=== PATIENT | female | born 1990 | race Caucasian/White ===

== ENCOUNTER 2020-11-06 17:13 | Outpatient (CLI) | payer OTHER, SELFPAY ==
[2020-11-06 18:09] LABS: Cholesterol 84 mg/dL (0-200); HDL Direct 28 mg/dL (40-60); LDL Cholesterol Calculated 20 mg/dL (<130); Triglycerides 179 mg/dL (0-150)
== END 2020-11-06 17:14 | disposition home or self-care (01) ==
LOC: CHSLAB 17:17
PROVIDERS: PCP Nurse Practitioner; Visit Provider Internal Medicine Cardiovascular Disease
DX: E78.5 Hyperlipidemia, unspecified (principal)
CPT/HCPCS: 36415; 80061

== ENCOUNTER 2021-01-18 20:49 | Emergency (ER) | payer OTHER, SELFPAY ==
[2021-01-18] VITALS (19 sets, daily range): BP systolic 108–152; BP diastolic 69–107; PULSE 59–106; RESP 12–20; TEMP 37; O2SAT 98–100
--- NOTE | ~2021-01-18 | XR_ITS ---
EXAMINATION: XR chest 2V DATE: 01/18/2021 21:54 INDICATION: Cough and chest pain TECHNIQUE: PA and lateral views of the chest are obtained. COMPARISON: None available FINDINGS: The lungs are free of acute opacities. There is no pleural effusion or pneumothorax. The ca rdiomediastinal silhouette is normal. The visualized bones and soft tissues are unremarkable. IMPRESSION: 1. No acute cardiopulmonary abnormality. Reviewed, dictated and finalized at location A.
--- NOTE | 2021-01-18 20:56 | ECG_ITS ---
Measurements Intervals [place] Rate: 88 P: 71 DE: 141 QRS: -9 QRSD: 95 T: 73 QT: 346 QTc: 420 Interpretive Statements SINUS RHYTHM NORMAL ECG Electronically Signed On 01-20-2021 12:04:00 CDT by Andrew Judge D.O.
--- NOTE | 2021-01-18 21:08 | ED.CHESTPAIN ---
HPI - Chest Pain General Chief Complaint: Chest Pain Stated Complaint: CP Time Seen by Provider: 01/18/21 20:55 Source: patient Mode of arrival: ambulatory Limitations: no limitations History of Present Illness HPI narrative: Patient is a 30-year-old female complaining of chest pain, sharp, midsternal, 6 out of 10, nonradiating that started approximately 4-5 days ago but states that has been going on since September. Patient denies any shortness of breath, abdominal pain, nausea, diaphoresis, fever or chills. Patient states that she had a similar episode in September had an echo, a cardiac cath done, was told no blockage and everything was normal. Related Data Home Medications Medication Instructions Recorded Confirmed lisinopril 10 mg PO DAILY 01/18/21 metoprolol tartrate 25 mg tablet 50 mg PO BID tablet 01/18/21 Allergies Allergy/AdvReac Type Severity Reaction Status Date / Time No Known Allergies Allergy Unverified 11/10/20 15:17 Review of Systems Review of Systems: All systems reviewed & are unremarkable except as noted in HPI and below Constitutional: Constitutional: Denies body ache(s), Denies chills, Denies excessive sweating, Denies fatigue, Denies fever(s), Denies headache(s), Denies lethargy, Denies malaise, Denies weakness and Denies weight loss Eyes: Eyes: Denies blurry vision, Denies change in vision and Denies loss of vision ENT: Denies dizziness, Denies ear discharge, Denies headache(s), Denies lip swelling, Denies epistaxis, Denies nasal congestion, Denies neck pain, Denies throat swelling and Denies tongue swelling Cardiovascular: Cardiovascular: Denies diaphoresis, Denies rapid heart rate, Denies edema, Denies irregular heart rhythm, Denies lightheadedness, Denies palpitations, Denies dyspnea and Denies dyspnea on exertion Respiratory: Respiratory: Denies chest congestion, Denies cough, Denies hemoptysis, Denies dyspnea and Denies dyspnea on exertion Gastrointestinal: Gastrointestinal: Denies abdominal pain, Denies melena, Denies hematochezia, Denies diarrhea, Denies nausea, Denies vomiting and Denies hematemesis Musculoskeletal: Musculoskeletal: Denies abnormal gait, Denies deformity, Denies joint swelling, Denies limited range of motion, Denies neck pain and Denies numbness Neurologic: Denies Abnormal speech present, Denies abnormal gait, Denies confusion, Denies dizziness, Denies headache(s), Denies focal weakness, Denies loss of vision, Denies numbness, Denies Other visual disturbances, Denies Sensory deficit (Neuro) and Denies weakness Psychiatric: Psychiatric: Denies confusion, Denies depression, Denies auditory hallucinations, Denies homicidal ideation and Denies suicidal ideation Endocrine: Endocrine: Denies cold intolerance, Denies excessive sweating, Denies fatigue, Denies heat intolerance and Denies palpitations Hematologic/Lymphatic: Hematologic/Lymphatic: Denies easy bleeding and Denies easy bruising Allergic/Immunologic: Allergic/Immunologic: Denies lip swelling, Denies throat swelling and Denies tongue swelling PMFSH Past Medical History Medical History Chest pain HTN (hypertension) Migraines NSTEMI (non-ST elevated myocardial infarction) Surgical History Surgical History History of appendectomy Family History Family History Mother Cerebrovascular accident Cancer Father Heart disease Social History Social History Smoking status: Current every day smoker Alcohol intake: never Exam Const: General: cooperative, healthy appearing, comfortable, no acute distress, well developed, alert and awake; No confusion Orientation/consciousness: oriented to person, oriented to place, oriented to time, patient oriented x3 and No confusion Henry
[2021-01-18 21:16] LABS: Basophils Absolute Auto 0.1 K/mm3 (0.0-0.1); Eosinophils Absolute Auto 0.4 K/mm3 (0-0.3); Eosinophils Percent Auto 4.5 % (0-4.4); Hematocrit 43.4 % (37.0-47.0); Hemoglobin 14.7 g/dL (12.0-15.0); Immature Granulocyte Absolute 0.02 K/mm3 (0.00-0.031); Immature Granulocyte Percent A 0.2 % (0-0.5); Lymphocytes Percent Auto 33.8 % (18.3-44.2); Mean Corpuscular HGB Conc 33.9 g/dl (32-36); Mean Corpuscular Hemoglobin 32.5 pg (26-34); Mean Platelet Volume 10.2 fl (7.4-10.4); Monocytes Absolute Auto 0.5 K/mm3 (0.1-0.6); Monocytes Percent Auto 5.7 % (2.6-8.5); Neutrophils Absolute Auto 5.2 K/mm3 (1.3-6.7); Neutrophils Percent Auto 54.8 % (45.5-73.1); Platelet Count Result 241 k/mm3 (150-375); Red Blood Count 4.52 M/mm3 (4.2-5.4); Red Cell Distribution Width 12.6 % (11.5-14.5); White Blood Count 9.5 K/mm3 (4.5-10.0)
[2021-01-18 21:28] LABS: Anion Gap 5 mmol/L (8-16); Blood Urea Nitrogen 13 mg/dL (7-17); Carbon Dioxide 28 mmol/L (22-30); Chloride 106 mmol/L (98-107); Estimated CRCL calculation 73 ml/min; Estimated Glomerular Filt Rate > 60; Glucose 96 mg/dL (65-105); Potassium 3.7 mmol/L (3.4-5.0); Sodium 139 mmol/L (137-145)
[2021-01-18 21:40] LABS: Troponin I < 0.012 ng/mL (0.000-0.034)
[2021-01-18 22:08] LABS: D Dimer 0.27 ug/mL (<0.48)
== END 2021-01-18 23:22 | disposition home or self-care (01) ==
PROVIDERS: Emergency Provider Emergency Medicine; PCP Nurse Practitioner
DX: R07.89 Other chest pain (principal); I10 Essential (primary) hypertension; I25.2 Old myocardial infarction; F17.200 Nicotine dependence, unspecified, uncomplicated
CPT/HCPCS: 36415; 71046; 80048; 81025; 84484; 85025; 85380; 93005; 99284

== ENCOUNTER 2021-05-03 16:26 | Outpatient (CLI) | payer OTHER, SELFPAY ==
--- NOTE | ~2021-05-03 | XR_ITS ---
XR chest 2V DATE: 05/03/2021 17:06 INDICATION: Anterior left-sided chest pain after cardiac catheterization on 10/04/2020 TECHNIQUE: PA and lateral views COMPARISON: PA and lateral chest FINDINGS: Normal heart size. No hilar or mediastinal enlargement. No pulmonary infiltrate or consolid ation, pleural effusion or pulmonary vascular congestion or pneumothorax. IMPRESSION: No active cardiopulmonary disease Reviewed, dictated and finalized at location A.
== END 2021-05-03 16:27 | disposition home or self-care (01) ==
LOC: CHSIMG 16:28
PROVIDERS: PCP Nurse Practitioner; Visit Provider Nurse Practitioner
DX: R07.89 Other chest pain (principal)
CPT/HCPCS: 71046

== ENCOUNTER 2021-09-08 11:49 | Outpatient (CLI) | payer OTHER, SELFPAY ==
--- NOTE | ~2021-09-08 | MMUS_ITS ---
EXAMINATION: MM diagnostic thais BI w girish, US breast LT limited HISTORY: Pain of the medial left breast radiating into the axilla and inframammary fold TECHNIQUE: Craniocaudal, mediolateral, and mediolateral oblique 3-D tomosynthesis images of the breas ts were performed and synthetic 2-D images were generated. CAD analysis was submitted and interpreted . High resolution limited left breast ultrasound was performed. COMPARISON: None, baseline BREAST PARENCHYMAL COMPOSITION: The breasts are heterogeneously dense, which may obscure small masses . FINDINGS: MAMMOGRAPHIC FINDINGS: There is no evidence of suspicious mass, calcification, or architectural distortion in either breast to suggest malignancy. No mammographic correlate is identified for the patient's reported left breast pain. ULTRASOUND: There is no evidence of focal abnormal solid or cystic mass in the vicinity of the patient's left sai ast pain. IMPRESSION: 1. No specific mammographic or sonographic correlate is identified for the patient's left breast pain . Further evaluation at this time should be based on clinical assessment. Continued follow-up physica l examination is recommended. 2. Recommend screening mammography beginning at age 40. BI-RADS Category 1: Negative Reviewed, dictated and finalized at location A. TOPPER IMPRESSION: 1. No specific mammographic or sonographic correlate is identified for the armond ent's left breast pain. Further evaluation at this time should be based on clin ical assessment. Continued follow-up physical examination is recommended. 2. Recommend screening mammography beginning at age 40. BI-RADS Category 1: Negative
== END 2021-09-08 11:50 | disposition home or self-care (01) ==
PROVIDERS: PCP Nurse Practitioner; Visit Provider Obstetrics & Gynecology
DX: R92.8 Other abnormal and inconclusive findings on diagnostic imaging of breast (principal)
CPT/HCPCS: 76642; 77062; 77066; G0279

== ENCOUNTER 2021-09-20 09:53 | Outpatient (RCR) | payer OTHER, SELFPAY ==
--- NOTE | 2021-09-23 15:36 | PTOPEVAL ---
Thank you for referring Fabi Álvarez to [facility].? The patient is scheduled to be seen for therapy? __2__x/week for 8 visits. Please review, sign, date and return this plan of care JAIRO. I agree with and certify that the following plan of care is medically necessary. Referring Physician Date Admitting Provider: Attending Provider: Lelia Pickett, CHRIS Referring Provider: *PT Outpatient Evaluation Start: 09/20/21 10:15 Freq: Status: Active Protocol: Document 09/20/21 10:15 [facility] (Rec: 09/20/21 11:07 [email or web address]) Therapy Assessment Status Assessment Status Assessment Status Evaluation Outpatient Past Medical History Cardiovascular History Hx Cardiac Catheterization Yes Hx Hypertension Yes Evaluation Information Problem Diagnosis costochondritis Onset 10/07/20 Subjective Information Pt. reports 2 days before Query Text:As Reported By Patient/ [place] she developed Family numbness going down her left arm. She reports she was put through testing which was inconclusive. She reports since that time she has had sharp pain located in the chest. She has been to the ER frequently due to the pain. She reports that pain is not triggered by anything particular. She describes pain as random and can radiate into the shoulder blades. Pt . reports that she has no disruption in sleep. She describes pin point pain on the sternum and states that the chest pain is worse than arm and back pain. She reports that her goal is to be able to decrease her pain. Diagnostic Tests X-Rays For This Problem Yes: chest Pain Assessment Pain Scale Pain Scale Used Numeric (1 - 10) Self Report Pain Assessment Chest Reported Pain Level 2 Pain Description Pinching,Sharp,Tender on Palpation Pain Frequency Intermittent Lowest Pain Intensity 0 Greatest Pain Intensity 9 Pain Aggravating Factors None Pain Score Pain Score 2: Self Report Interventions Used Interventions Used By Clinicians Exercise,Mobilization,Manual
--- NOTE | 2021-11-16 11:38 | PTOPEVAL ---
Thank you for referring Fabi Álvarez to [facility].? The patient is scheduled to be seen for therapy? ____x/week for ___ weeks. Please review, sign, date and return this plan of care JAIRO. I agree with and certify that the following plan of care is medically necessary. Referring Physician Date Admitting Provider: Attending Provider: Lelia Pickett, TECHNOLOGY SERVICES MANAGER-BC Referring Provider: *PT Outpatient Evaluation Start: 09/20/21 10:15 Freq: Status: Active Protocol: Document 11/16/21 10:58 [facility] (Rec: 11/16/21 11:35 [facility] [email or web address]) Therapy Assessment Status Assessment Status Assessment Status Discharge Outpatient Past Medical History Cardiovascular History Hx Cardiac Catheterization Yes Hx Hypertension Yes Evaluation Information Problem Diagnosis costochondritis Onset 10/07/20 Additional Evaluation Detail ndi = 6% functionally declined Subjective Information patient reports she feels Query Text:As Reported By Patient/ great this date. she reports Family she has had no symptoms in the past 3-4 weeks. she reports she feels therapy has helped a lot. Pain Assessment Timing of Pain Assessment Timing of Pain Assessment Assessment Self Report Self Report Pain Level 0 Pain Score Pain Score 0: Self Report Cervical and Lumbar ROM Cervical ROM Cervical Flexion (0-60) 65 Query Text:Active in Degrees Cervical Extension (0-70) 55 Query Text:Active in Degrees Cervical Lateral Flexion Right (0-50) 45 Query Text:Active in Degrees Cervical Lateral Flexion Left (0-50) 45 Query Text:Active in Degrees Cervical Rotation Right (0-90) 80 Query Text:Active in Degrees Cervical Rotation Left (0-90) 80 Query Text:Active in Degrees Upper Extremity Muscle Strength Testing General Upper Extremity Strength Gross Upper Extremity Strength Comments 5/5 bilateral shoulder and elbow strength 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 álvarez presents to skilled PT services for her 8th skilled PT visit. as of this date, she has me
== END 2021-11-16 13:46 | disposition home or self-care (01) ==
LOC: CHSPT 09:53
PROVIDERS: PCP Nurse Practitioner; Visit Provider Nurse Practitioner
DX: M94.0 Chondrocostal junction syndrome [Tietze] (principal)
CPT/HCPCS: 97110; 97140; 97161

== ENCOUNTER 2021-09-20 11:08 | Outpatient (CLI) | payer OTHER, SELFPAY ==
[2021-09-20 12:01] LABS: Rheumatoid Factor Screen Negative (Negative)
[2021-09-20 12:04] LABS: CRP < 0.2 mg/dL (0.0-0.9)
[2021-09-20 12:27] LABS: Erythrocyte Sedimentation Rate 2 mm/hr (0-15)
[2021-09-23 18:27] LABS: Anti Nuclear Antibody Titer 1:40 (Negative)
== END 2021-09-20 11:09 | disposition home or self-care (01) ==
LOC: CHSLAB 11:10
PROVIDERS: PCP Nurse Practitioner; Visit Provider Nurse Practitioner
DX: F11.11 Opioid abuse, in remission (principal); F41.1 Generalized anxiety disorder; R07.89 Other chest pain; Z13.31 Encounter for screening for depression
CPT/HCPCS: 36415; 85652; 86038; 86039; 86140; 86430

== ENCOUNTER 2022-04-02 13:15 | Emergency (ER) | payer OTHER, SELFPAY ==
[2022-04-02 13:17] VITALS: BP 140/81; PULSE 97; RESP 20; TEMP 37.1; O2SAT 99
--- NOTE | 2022-04-02 13:28 | ECG_ITS ---
Measurements Intervals [place] Rate: 77 P: 56 [place]: 142 QRS: -7 QRSD: 90 T: 58 QT: 361 QTc: 411 Interpretive Statements SINUS RHYTHM WITH SINUS ARRHYTHMIA NORMAL ECG COMPARED TO ECG 01/18/2021 20:56:38 SINUS ARRHYTHMIA NOW PRESENT Electronically Signed On 04-03-2022 9:09:35 CDT by Gumaro Bell M.D.
--- NOTE | 2022-04-02 13:46 | ED.ARRPALP ---
HPI - Arrhythmia/Palpitations General Chief Complaint: Arrhythmia/Palpitations Stated Complaint: dizzy, chest pain, low HR, nausea Source: patient Mode of arrival: ambulatory Limitations: no limitations History of Present Illness HPI narrative: this is a 31-year-old female that sees Cardiology for palpitations currently on metoprolol, the patient felt woozy, with some twinges in her chest patient otherwise no shortness of breath does appear anxious with no fever chills no abdominal pain does have some nausea with no vomiting. Apparently has been on metoprolol and heart rate according patient fluctuates and has gotten down into the upper 50s and has felt concerned. complaint: palpitations Onset (ago): day(s) Duration: intermittent Severity: mild Context: occurred during rest Associated symptoms: denies other symptoms Related Data Allergies Allergy/AdvReac Type Severity Reaction Status Date / Time No Known Allergies Allergy Verified 02/22/22 14:01 Review of Systems Review of Systems: All systems reviewed & are unremarkable except as noted in HPI and below PMFSH Past Medical History Medical History Chest pain HTN (hypertension) Migraines NSTEMI (non-ST elevated myocardial infarction) Surgical History Surgical History History of appendectomy Family History Family History Mother Cerebrovascular accident Cancer Father Heart disease Social History Social History Smoking packs per day: 0.5 Smoking cigarettes per day: 10.0 Years smoked: 10 Smoking pack-years: 5.00 Smoking status: Current every day smoker Alcohol intake: never Exam Const: General: healthy appearing Limitations: no limitations HENMT: Head: normal to inspection Eyes: Conjunctivae: conjunctivae normal Neck: Neck: normal visual inspection, no lymphadenopathy and no meningeal signs Chest: Chest palpation & inspection: normal inspection of the chest Resp: Effort & Inspection: normal respiratory effort Cardio: Rate: regular rate Rhythm: regular rhythm GI: Auscultation: normal bowel sounds Back/Spine/Pelvis: Back: no CVA tenderness Skin: General skin exam: normal color Rashes: no rashes Wounds: no wounds Neuro: General: patient oriented x3 and moves all extremities Extrem: General: normal to inspection Psych: Mental Status: mental status grossly normal Affect: Anxious affect present Course Course Emergency Course: Patient appears anxious and give a dose of Xanax, patient had EKG which shows normal sinus rhythm with a rate of 77. Critical Care Time Critical Care Time Critical Care Time: No Discharge Plan Discharge Clinical Impression: Palpitations, Anxiety Patient Disposition: Home, Self-Care Condition: Stable Instructions: Antibiotic Form, Heart Palpitations (ED), Anxiety (ED) Additional Instructions: advised to take medicine as prescribed, and follow up with primary care/ frame builder for further evaluation treatment. Prescriptions: New alprazolam [Xanax] 0.5 mg tablet 0.5 mg PO BID PRN (Reason: anxiety) Qty: 20 0RF No Action metoprolol tartrate 25 mg tablet 25 mg PO BID Qty: 60 2RF amlodipine 2.5 mg tablet See Rx Instructions .ROUTE .COMPLEX Qty: 30 5RF Dose Instruction: TAKE 1 TABLET BY MOUTH DAILY Rx Instructions: TAKE 1 TABLET BY MOUTH DAILY Follow-up/Referrals: Piyush,CHRIS Rowell [Primary Care Provider] - Time of Disposition: 13:58
[2022-04-02] MEDS: ALPRAZolam (*CRX) 0.5 MG TABLET PO (13:54)
[2022-04-02 14:01] VITALS: BP 140/81; PULSE 97; RESP 20; TEMP 37.2; O2SAT 99
--- NOTE | 2022-04-02 14:21 | PC.NURSE ---
discharge instructions to pt. voiced understanding. awaiting family members to pick her up from a ride home.
--- NOTE | 2022-04-02 14:44 | PC.NURSE ---
friend felicity london here to [place] picker pt.
== END 2022-04-02 14:44 | disposition home or self-care (01) ==
PROVIDERS: Emergency Provider Emergency Medicine; PCP Nurse Practitioner
DX: R00.2 Palpitations (principal); F41.9 Anxiety disorder, unspecified
CPT/HCPCS: 93005; 99283; A9270

== ENCOUNTER 2022-06-11 16:14 | Emergency (ER) | payer OTHER, SELFPAY ==
[2022-06-11] VITALS (15 sets, daily range): BP systolic 118–150; BP diastolic 75–96; PULSE 62–91; RESP 12–20; TEMP 36.8–37; O2SAT 95–100
--- NOTE | ~2022-06-11 | XR_ITS ---
EXAMINATION: XR chest 2V Exam Date/Time: 06/11/2022 19:42 CDT HISTORY: cough Comparison: 05/03/2021. RESULT: Lines, tubes, and devices: None. Lungs and pleura: Clear. Cardiomediastinal silhouette: Stable. Other: No acute osseous or upper abdominal finding. IMPRESSION: No acute cardiopulmonary process. Reviewed, dictated and finalized at location K.
--- NOTE | 2022-06-11 16:25 | ECG_ITS ---
Measurements Intervals [place] Rate: 79 P: 56 [place]: 146 QRS: -2 QRSD: 87 T: 34 QT: 347 QTc: 399 Interpretive Statements SINUS RHYTHM NORMAL ECG COMPARED TO ECG 04/02/2022 13:39:08 NO SIGNIFICANT CHANGES Electronically Signed On 06-12-2022 12:20:07 CDT by Jimi Flanagan M.D.
[2022-06-11 17:08] LABS: Basophils Absolute Auto 0.1 K/mm3 (0.0-0.1); Basophils Percent Auto 0.6 % (0.2-1.2); Eosinophils Absolute Auto 0.1 K/mm3 (0-0.3); Eosinophils Percent Auto 0.6 % (0-4.4); Hematocrit 44.3 % (37.0-47.0); Immature Granulocyte Absolute 0.03 K/mm3 (0.00-0.031); Immature Granulocyte Percent A 0.3 % (0-0.5); Lymphocytes Absolute Auto 1.06 K/mm3 (0.9-3.2); Lymphocytes Percent Auto 10.2 % (18.3-44.2); Mean Corpuscular HGB Conc 33.9 g/dl (32-36); Mean Corpuscular Hemoglobin 32.1 pg (26-34); Mean Corpuscular Volume 94.7 fl (80-100); Mean Platelet Volume 9.8 fl (7.4-10.4); Monocytes Absolute Auto 0.5 K/mm3 (0.1-0.6); Monocytes Percent Auto 4.6 % (2.6-8.5); Neutrophils Absolute Auto 8.7 K/mm3 (1.3-6.7); Neutrophils Percent Auto 83.7 % (45.5-73.1); Platelet Count Result 215 k/mm3 (150-375); Red Blood Count 4.68 M/mm3 (4.2-5.4); White Blood Count 10.4 K/mm3 (4.5-10.0)
[2022-06-11 17:10] LABS: Appearance Urine Slightly Cloudy (Clear); Bilirubin Urine Negative (Negative); Glucose Urine UA Negative (Negative); Ketones Urine Negative (Negative); Leukocyte Esterase Ur Negative LEU/UL (Negative); Nitrate Urine Negative (Negative); Protein Urine Negative (Negative); Urobilinogen Urine 0.2 mg/dL (<2.0); pH Urine 6.5 (5.0-9.0)
[2022-06-11 17:11] LABS: Add Urine Microscopic? YES; Blood Urine Trace-Intact (Negative); Color Urine Light Yellow (Yellow)
[2022-06-11 17:12] LABS: Bacteria Urine Trace /hpf; Mucus Urine Rare /lpf; RBC Urine 0-2 /hpf (0-2); Squamous Epithelial Cell Urine Occasional /hpf (Few); WBC Urine 0-3 /hpf
[2022-06-11 17:21] LABS: Alanine Aminotransferase 25 U/L (6-35); Albumin Level 4.3 g/dL (3.5-5.1); Alkaline Phosphatase 40 U/L (38-126); Anion Gap 9 mmol/L (8-16); Aspartate Amino Transferase 29 U/L (14-36); Bilirubin,Total 0.3 mg/dL (0.2-1.3); Blood Urea Nitrogen 9 mg/dL (7-17); Calcium 9.1 mg/dL (8.4-10.2); Carbon Dioxide 25 mmol/L (22-30); Chloride 102 mmol/L (98-107); Estimated CRCL calculation 109 ml/min; Estimated Glomerular Filt Rate > 60; Glucose 96 mg/dL (65-110); Potassium 3.9 mmol/L (3.4-5.0); Sodium 136 mmol/L (137-145)
--- NOTE | 2022-06-11 18:26 | ED.WEAKNESS ---
HPI - Weakness General Chief complaint: Weakness Stated complaint: left rib pain, weak Time Seen by Provider: 06/11/22 17:42 History of Present Illness HPI Narrative: Patient is a 31-year-old female who presents ER with generalized fatigue over the last week. Associate with left-sided rib pain that is worse with movements. Symptoms worsen while doing her laundry so she came to the ER. No fevers or chills or sweats. Reports mild cough. No exertional chest discomfort. Has tried Tylenol for discomfort with minimal improvement. Related Data Allergies Allergy/AdvReac Type Severity Reaction Status Date / Time No Known Allergies Allergy Verified 06/11/22 17:45 Review of Systems Review of Systems: All systems reviewed & are unremarkable except as noted in HPI and below Constitutional: Constitutional: Denies chills, Reports fatigue, Denies fever(s) and Reports weakness ENT: Denies nasal congestion and Denies sore throat Cardiovascular: Cardiovascular: Reports chest pain, Denies rapid heart rate and Denies radiating jaw, neck or arm pain Respiratory: Respiratory: Reports cough, Denies dyspnea and Denies wheezing Gastrointestinal: Gastrointestinal: Denies abdominal pain, Denies nausea and Denies vomiting PMFSH Past Medical History Medical History Chest pain HTN (hypertension) Migraines NSTEMI (non-ST elevated myocardial infarction) Surgical History Surgical History History of appendectomy Family History Family History Mother Cerebrovascular accident Cancer Father Heart disease Social History Social History Smoking packs per day: 0.5 Smoking cigarettes per day: 10.0 Years smoked: 10 Smoking pack-years: 5.00 Smoking status: Current every day smoker Alcohol intake: never Exam Narrative: GENERAL: Well-appearing, well-nourished, and in no acute distress. HEAD: Normocephalic, atraumatic. ENT: Mucous membranes moist. NECK: Supple. CHEST: Clear to auscultation. No respiratory distress. Mild tenderness left lateral chest wall. Inferior aspect. HEART: Regular rate and rhythm. Normal peripheral pulses. ABDOMEN: Soft, nontender, nondistended. EXTREMITIES: Normal range of motion. No edema. SKIN: Warm, dry, no rash. NEURO: Alert and oriented x3. PSYCH: Normal mood and affect. Course Course Emergency Course: Patient resting comfortably. Pain improved with Toradol. D-dimer negative. Vital Signs Vital signs: Vital Signs Temperature 98.6 F 06/11/22 16:21 Pulse Rate 90 06/11/22 16:21 Respiratory Rate 16 06/11/22 16:21 Blood Pressure 138/83 06/11/22 16:21 Pulse Oximetry 99 06/11/22 16:21 Oxygen Delivery Room Air 06/11/22 16:21 Temperature 98.3 F 06/11/22 17:40 Pulse Rate 62 06/11/22 20:12 Respiratory Rate 20 06/11/22 20:12 Blood Pressure 137/75 06/11/22 20:12 Pulse Oximetry 95 06/11/22 20:12 Oxygen Delivery Room Air 06/11/22 17:40 MDM - Weakness Lab Data Result diagrams: 06/11/22 17:01 06/11/22 17:01 Labs: Lab Results 06/11/22 06/11/22 06/11/22 Range/Units 17:01 17:01 17:01 WBC 10.4 H (4.5-10.0) K/mm3 RBC 4.68 (4.2-5.4) M/mm3 Hgb 15.0 (12.0-15.0) g/dL Hct 44.3 (37.0-47.0) % MCV 94.7 (80-100) fl MCH 32.1 (26-34) pg MCHC 33.9 (32-36) g/dl RDW 12.0 (11.5-14.5) % Plt Count 215 (150-375) k/mm3 MPV 9.8 (7.4-10.4) fl Immature Gran % (Auto) 0.3 (0-0.5) % Neut % (Auto) 83.7 H (45.5-73.1) % Lymph % (Auto) 10.2 L (18.3-44.2) % [place] % (Auto) 4.6 (2.6-8.5) % Eos % (Auto) 0.6 (0-4.4) % Baso % (Auto) 0.6 (0.2-1.2) % Lymph # (Auto) 1.06 (0.9-3.2) K/mm3 [place] # (Auto) 0.5 (0.1-0.6) K/mm3 Eos # (Auto) 0
[2022-06-11] MEDS: KETOROLAC 30 MG/ML VIAL (*BKC) IV PUSH (18:48)
[2022-06-11 19:17] LABS: D Dimer < 0.27 ug/mL (<0.48)
== END 2022-06-11 20:14 | disposition home or self-care (01) ==
PROVIDERS: Emergency Medicine; Emergency Provider Emergency Medicine; PCP Nurse Practitioner
DX: R07.89 Other chest pain (principal); I10 Essential (primary) hypertension; I25.2 Old myocardial infarction; F17.210 Nicotine dependence, cigarettes, uncomplicated
CPT/HCPCS: 36415; 71046; 80053; 81001; 81025; 85025; 85380; 93005; 96374; 99284; J1885

== ENCOUNTER 2022-07-08 17:12 | Outpatient (CLI) | payer OTHER, SELFPAY ==
--- NOTE | ~2022-07-08 | CT_ITS ---
EXAMINATION: CT sinus wo con DATE: 07/08/2022 17:29 INDICATION: Frontal sinus mucocele. TECHNIQUE: Computed tomography (CT) of the paranasal sinuses was performed without intravenous contra st. The dose-length product was 310.25 mGy-cm. Automated exposure control and iterative reconstructio n technique were employed. COMPARISON: CT dated 02/13/2019 FINDINGS: There is mucosal thickening of the right maxillary sinus with air-fluid level. No significa nt mucoperiosteal reaction. There are surgical changes consistent with resection of the right ostiome atal unit. Left ostiomeatal unit is patent. Mild rightward nasal septal deviation. Remainder of the p aranasal sinuses are unremarkable. Mastoids are pneumatized. IMPRESSION: 1. Moderate right maxillary sinus disease. Reviewed, dictated and finalized at location A.
== END 2022-07-08 17:13 | disposition home or self-care (01) ==
LOC: ANHIMG 17:14
PROVIDERS: PCP Nurse Practitioner; Visit Provider Otolaryngology
DX: J32.1 Chronic frontal sinusitis (principal); J34.1 Cyst and mucocele of nose and nasal sinus; J32.0 Chronic maxillary sinusitis
CPT/HCPCS: 70486

== ENCOUNTER 2022-07-13 14:06 | Outpatient (CLI) | payer OTHER, SELFPAY ==
--- NOTE | ~2022-07-13 | XR_ITS ---
XR abdomen/kub 1V 07/13/2022 14:27 INDICATION: Left flank pain TECHNIQUE: KUB COMPARISON: 07/10/2017 FINDINGS: Bowel gas pattern is normal. There is no evidence of free air, mass, organomegaly, ascites or obstruction. No abnormal calculi are seen. The bones appear intact. There are calcified granulo mas in the spleen. IMPRESSION: 1: No acute abdominal abnormality identified. Reviewed, dictated and finalized at location B.
== END 2022-07-13 14:07 | disposition home or self-care (01) ==
LOC: CHSLAB 14:08 → CHSIMG 14:10
PROVIDERS: PCP Nurse Practitioner; Visit Provider Nurse Practitioner
DX: R10.9 Unspecified abdominal pain (principal)
CPT/HCPCS: 74018

== ENCOUNTER 2022-10-18 13:05 | Outpatient (CLI) | payer OTHER, SELFPAY ==
[2022-10-18 13:25] LABS: Basophils Absolute Auto 0.07 K/mm3 (0.00-0.10); Basophils Percent Auto 0.9 % (0.0-1.0); Eosinophils Absolute Auto 0.17 K/mm3 (0.02-0.50); Eosinophils Percent Auto 2.2 % (1.0-6.0); Hematocrit 42.8 % (35.0-49.0); Immature Granulocyte Absolute 0.02 K/mm3 (0.00-0.00); Immature Granulocyte Percent A 0.3 % (0.0-0.0); Lymphocytes Absolute Auto 1.96 K/mm3 (1.10-4.50); Lymphocytes Percent Auto 25.3 % (18.0-42.0); Mean Corpuscular HGB Conc 32.7 g/dL (32.0-36.0); Mean Corpuscular Hemoglobin 29.9 pg (27.0-31.0); Mean Corpuscular Volume 91.3 fL (78.0-102.0); Mean Platelet Volume 9.7 fl (9.2-11.8); Monocytes Absolute Auto 0.41 K/mm3 (0.10-0.90); Monocytes Percent Auto 5.3 % (2.0-11.0); Neutrophils Absolute Auto 5.1 K/mm3 (1.7-7.2); Platelet Count Result 255 K/mm3 (150-420); Red Blood Count 4.69 M/mm3 (4.20-5.40); Red Cell Distribution Width 12.1 % (11.6-14.4); White Blood Count 7.8 K/mm3 (4.8-10.8)
[2022-10-18 13:57] LABS: Free T4 Free Thyroxine 1.34 ng/dL (0.76-1.46)
[2022-10-18 14:30] LABS: Thyroid Stimulating Hormone < 0.01 uIU/mL (0.36-3.74)
[2022-10-20 04:34] LABS: Total Triiodothyronine (T3) 169.6 ng/dL (76-181)
== END 2022-10-18 13:06 | disposition home or self-care (01) ==
LOC: CHSLAB 13:07
PROVIDERS: PCP Nurse Practitioner; Visit Provider Nurse Practitioner
DX: E05.90 Thyrotoxicosis, unspecified without thyrotoxic crisis or storm (principal); F11.11 Opioid abuse, in remission; F41.1 Generalized anxiety disorder; Z13.31 Encounter for screening for depression
CPT/HCPCS: 36415; 84439; 84443; 84480; 85025

== ENCOUNTER 2022-11-16 00:24 | Day surgery (SDC) | payer OTHER, SELFPAY ==
[2022-10-07 14:05] VITALS: BMI 28.9
--- NOTE | 2022-10-31 14:28 | PC.NURSE ---
Spoke with patient regarding new procedure dates and times. No new changes to medical history or medications. Patient verbalizes understanding of prep instructions.
[2022-11-16] MEDS: LACTATED RINGERS 1,000 ML 150 ML IV CONT (09:45)
[2022-11-16 09:47] VITALS: BP 136/84; PULSE 98; RESP 20; TEMP 37.1; O2SAT 98; BMI 28.7
--- NOTE | 2022-11-16 10:00 | PM.HPGS ---
History of Present Illness History of Present Illness Consent: Risks, benefits, and alternatives have been discussed and questions answered. Patient agrees to proceed with procedure. Chief complaint: diarrhea/constipation Narrative: Fabi Álvarez is a 32 year old female with intermittent pain in left abdomen and sometimes with constipation, not using anything. Never had colonoscopy Review of Systems Constitutional: Constitutional: Denies headache(s) and Denies weakness Eyes: Eyes: Denies blurry vision ENT: Reports Normal hearing present, Denies headache(s) and Denies neck pain Cardiovascular: Cardiovascular: Denies chest pain and Denies dyspnea Respiratory: Respiratory: Denies dyspnea Gastrointestinal: Gastrointestinal: Reports no additional gastrointestinal complaints Genitourinary: Genitourinary: Denies dysuria Musculoskeletal: Musculoskeletal: Denies neck pain Integumentary/Breasts: Skin/Breast: Denies dry skin Neurologic: Reports Normal hearing present, Denies headache(s) and Denies weakness Psychiatric: Psychiatric: Denies anxiety Endocrine: Endocrine: Denies change in body appearance Hematologic/Lymphatic: Hematologic/Lymphatic: Denies easy bleeding Allergic/Immunologic: Allergic/Immunologic: Denies urticaria PMF Past Medical History Medical History (Updated 11/16/22 @ 10:01 by Neo Gonzalez MD) Chest pain HTN (hypertension) Left sided abdominal pain Migraines NSTEMI (non-ST elevated myocardial infarction) Surgical History Surgical History History of appendectomy Family History Family History Mother Cerebrovascular accident Cancer Father Heart disease Social History Social History (Updated 09/29/22 @ 09:48 by Malcolm Bird MA) Smoking packs per day: 0.5 Smoking cigarettes per day: 10.0 Years smoked: 10 Smoking pack-years: 5.00 Smoking status: Current every day smoker Tobacco type: e-cigarettes/vaping Alcohol intake: never Substance use: former Substance use type: opiates Living arrangements: with friend(s) Spiritual care concerns: No Meds Home Medications and Allergies Home Medications Medication Instructions Recorded Confirmed Type metoprolol tartrate 25 mg tablet See Rx Instructions .Route 08/16/22 10/07/22 Rx .COMPLEX #60 tabs amlodipine 5 mg tablet 5 mg PO DAILY #90 tabs 09/23/22 10/07/22 Rx lorazepam 0.5 mg tablet (Ativan) 0.5 mg PO BID PRN Anxiety 09/29/22 10/07/22 History buprenorphine 8 mg-naloxone 2 mg 1 tablet sublingual DAILY 10/07/22 10/07/22 History sublingual tablet Allergies Allergy/AdvReac Type Severity Reaction Status Date / Time No Known Allergies Allergy Verified 11/16/22 09:41 Vital Signs Vital Signs - 24 hr 11/16/22 09:47 Temperature 98.7 F Pulse Rate 98 Respiratory Rate 20 Blood Pressure 136/84 Pulse Oximetry 98 Oxygen Delivery Room Air Exam Const: General: comfortable and no acute distress HENMT: Face/Nose/Sinus: Normal nares present Eyes: General: appearance normal, both eyes and all related structures Neck: Neck: no JVD Resp: Auscultation: clear to auscultation bilaterally Cardio: Rate: regular rate Rhythm: regular rhythm GI: Inspection: non-distended GI Palp: Yes Soft to palpation Skin: General skin exam: normal color Neuro: General: gait normal Speech: normal speech Extrem: General: normal to inspection Psych: Mental Status: mental status grossly normal Assessment and Plan Assessment and plan (1) Left sided abdominal pain: Code(s): R10.9 - Unspecified abdominal pain Status: Acute Assessment and Plan: colonoscopy
--- NOTE | 2022-11-16 10:10 | P.PNAN_ITS ---
Anes - Initial Pre Proc Eval Procedure: Operation Date: 11/16/22 11:00 Proposed Procedures p Colonoscopy - Neo Gonzalez MD Date/Time: 11/16/22 10:10 Surgeon: Neo Gonzalez MD Pre Op Diagnosis: diarrhea/constipation Patient Data Age: 32 Gender: F Height: 1.6 m Weight: 73.5 kg Last Vital Signs Temp 98.7 F 11/16/22 09:47 Pulse 98 11/16/22 09:47 Resp 20 11/16/22 09:47 BP 136/84 11/16/22 09:47 Pulse Ox 98 11/16/22 09:47 O2 Del Method Room Air 11/16/22 09:47 Allergies Allergy/AdvReac Type Severity Reaction Status Date / Time No Known Allergies Allergy Verified 11/16/22 09:41 Home Medications Medication Instructions Recorded Confirmed Type metoprolol tartrate 25 mg tablet See Rx Instructions .Route 08/16/22 10/07/22 Rx .COMPLEX #60 tabs amlodipine 5 mg tablet 5 mg PO DAILY #90 tabs 09/23/22 10/07/22 Rx lorazepam 0.5 mg tablet (Ativan) 0.5 mg PO BID PRN Anxiety 09/29/22 10/07/22 History buprenorphine 8 mg-naloxone 2 mg 1 tablet sublingual DAILY 10/07/22 10/07/22 History sublingual tablet Patient hx anesthesia problems: none Family hx anesthesia problems: none Results Review: All pre-operative results and documents have been reviewed as part of the pre- operative evaluation. [facility] Past Medical History Medical History (Updated 11/16/22 @ 10:01 by Neo Gonzalez MD) Chest pain HTN (hypertension) Left sided abdominal pain Migraines NSTEMI (non-ST elevated myocardial infarction) Surgical History Surgical History History of appendectomy Family History Family History Mother Cerebrovascular accident Cancer Father Heart disease Social History Social History (Updated 09/29/22 @ 09:48 by Malcolm Bird MA) Smoking packs per day: 0.5 Smoking cigarettes per day: 10.0 Years smoked: 10 Smoking pack-years: 5.00 Smoking status: Current every day smoker Tobacco type: e-cigarettes/vaping Alcohol intake: never Substance use: former Substance use type: opiates Living arrangements: with friend(s) Spiritual care concerns: No Anes - Eval Final PreProcedure Day of Procedure 11/16/22 10:10 Patient weight: normal Heart: regular rate and rhythm Lungs: clear to auscultation Airway: Mallampati scale class II Neurological: alert and oriented Last oral intake: >/= 8 hours ASA classification: II Emergent: no Anesthetic plan: proceed Anesthesia type and monitoring: general GIVS and standard monitoring Results Review: All pre-operative results and documents have been reviewed as part of the pre- operative evaluation. Informed Consent: The patient's anesthetic plan and its attendant risks and benefits were discussed with the patient/family/POA. Questions were solicited and answers provided to the satisfaction of the patient/family/POA.
[2022-11-16 10:50] VITALS: BP 108/66; PULSE 96; RESP 19; O2SAT 99
[2022-11-16 11:00] VITALS: BP 110/67; PULSE 96; RESP 17; O2SAT 97
[2022-11-16 11:10] VITALS: BP 117/77; PULSE 97; RESP 21; O2SAT 99
== END 2022-11-16 11:16 | disposition home or self-care (01) ==
PROVIDERS: PCP Nurse Practitioner; Visit Provider Internal Medicine Gastroenterology
PROC: 0DJD8ZZ Inspection of Lower Intestinal Tract, Via Natural or Artificial Opening Endoscopic (ICD-10-PCS; CPT 45378; principal; 2022-11-16 11:00)
DX: R10.32 Left lower quadrant pain (principal); K59.00 Constipation, unspecified; I10 Essential (primary) hypertension; I25.2 Old myocardial infarction; F17.290 Nicotine dependence, other tobacco product, uncomplicated; F11.20 Opioid dependence, uncomplicated
CPT/HCPCS: 45378; 36415; 71045; 80053; 81001; 81025; 83605; 83690; 85025; 87637; 96361; 96374; 99284; J1885; J2704; J7030; J7120

== ENCOUNTER 2022-11-16 18:59 | Emergency (ER) | payer OTHER, SELFPAY ==
--- NOTE | ~2022-11-16 | XR_ITS ---
EXAMINATION: XR chest 1V portable DATE: 11/16/2022 20:15 INDICATION: Fever. Congestion. TECHNIQUE: A single frontal view of the chest was obtained. COMPARISON: Chest 2 views 06/11/2022 FINDINGS: There is no pneumonia, pleural effusion, or pneumothorax. The heart size is normal. IMPRESSION: 1. No acute cardiopulmonary disease. Reviewed, dictated and finalized at location A. [facility]
[2022-11-16 19:02] VITALS: BP 142/88; PULSE 114; RESP 16; TEMP 37.6; O2SAT 97
[2022-11-16] MEDS: SODIUM CHLORIDE 0.9% IV 1,000 ML 999 ML IV CONT (19:49)
[2022-11-16 19:50] LABS: Basophils Percent Auto 0.7 % (0.2-1.2); Eosinophils Absolute Auto 0.1 K/mm3 (0-0.3); Eosinophils Percent Auto 1.5 % (0-4.4); Hematocrit 38.8 % (37.0-47.0); Hemoglobin 12.9 g/dL (12.0-15.0); Immature Granulocyte Absolute 0.01 K/mm3 (0.00-0.031); Immature Granulocyte Percent A 0.2 % (0-0.5); Lymphocytes Absolute Auto 0.36 K/mm3 (0.9-3.2); Lymphocytes Percent Auto 8.9 % (18.3-44.2); Mean Corpuscular HGB Conc 33.2 g/dl (32-36); Mean Corpuscular Hemoglobin 30.9 pg (26-34); Mean Corpuscular Volume 92.8 fl (80-100); Mean Platelet Volume 9.8 fl (7.4-10.4); Monocytes Absolute Auto 0.6 K/mm3 (0.1-0.6); Monocytes Percent Auto 15.3 % (2.6-8.5); Neutrophils Percent Auto 73.4 % (45.5-73.1); Platelet Count Result 164 k/mm3 (150-375); Red Blood Count 4.18 M/mm3 (4.2-5.4); Red Cell Distribution Width 13.1 % (11.5-14.5)
[2022-11-16 19:51] LABS: Appearance Urine Clear (Clear); Bilirubin Urine Negative (Negative); Blood Urine Trace-lysed (Negative); Color Urine Yellow (Yellow); Glucose Urine UA Negative (Negative); Ketones Urine Negative (Negative); Leukocyte Esterase Ur Negative LEU/UL (Negative); Nitrate Urine Negative (Negative); Protein Urine Negative (Negative); Urobilinogen Urine 0.2 mg/dL (<2.0); pH Urine 5.5 (5.0-9.0)
--- NOTE | 2022-11-16 19:55 | ED.FEVER ---
HPI - Fever General Chief Complaint: Fever Stated Complaint: fever post op Time Seen by Provider: 11/16/22 19:25 Source: patient, RN notes reviewed and old records reviewed Mode of arrival: ambulatory Limitations: no limitations History of Present Illness HPI Narrative: This is a 32 year old female who presents for evaluation of fever and body aches. Patient states this morning she did not feel well and she had mild headache. She completed bowel prep for a colonoscopy that she had today around 11 am. She thought her symptoms were due to not eating and drinking. She had a colonoscopy done without any complications, and no biopsies were performed. Once she got home, she developed fever of 102F with body aches. She also reports left upper abdominal pain, but she has been having this pain for 6 months. She had a colonoscopy to evaluated her abdominal pain. She denies nausea, vomiting, cough, URI symptoms. She took tylenol around 6 pm today. Related Data Home Medications Medication Instructions Recorded Confirmed lorazepam 0.5 mg tablet (Ativan) 0.5 mg PO BID PRN Anxiety 09/29/22 10/07/22 buprenorphine 8 mg-naloxone 2 mg 1 tablet sublingual DAILY 10/07/22 10/07/22 sublingual tablet Allergies Allergy/AdvReac Type Severity Reaction Status Date / Time No Known Allergies Allergy Verified 11/16/22 09:41 Review of Systems Constitutional: Constitutional: Reports fatigue, Reports fever(s) and Denies weakness Cardiovascular: Cardiovascular: Denies syncope, Denies rapid heart rate, Denies irregular heart rhythm, Denies leg edema and Denies dyspnea Respiratory: Respiratory: Denies chest congestion, Denies hemoptysis, Denies excessive phlegm production and Denies dyspnea Gastrointestinal: Gastrointestinal: Reports abdominal pain, Denies hematochezia, Denies diarrhea and Denies vomiting Genitourinary: Genitourinary: Denies hematuria and Denies dysuria Musculoskeletal: Musculoskeletal: Denies joint swelling, Denies loss of height and Denies muscle weakness Neurologic: Denies syncope, Denies focal weakness and Denies weakness PMFSH Past Medical History Medical History Chest pain HTN (hypertension) Left sided abdominal pain Migraines NSTEMI (non-ST elevated myocardial infarction) Surgical History Surgical History History of appendectomy Family History Family History Mother Cerebrovascular accident Cancer Father Heart disease Social History Social History Smoking packs per day: 0.5 Smoking cigarettes per day: 10.0 Years smoked: 10 Smoking pack-years: 5.00 Smoking status: Current every day smoker Tobacco type: e-cigarettes/vaping Alcohol intake: never Substance use: former Substance use type: opiates Living arrangements: with friend(s) Spiritual care concerns: No Exam Const: General: no acute distress and alert Nutritional Appearance: well nourished Orientation/consciousness: patient oriented x3 Limitations: no limitations HENMT: Head: normal to inspection Ears: external ears normal Face and sinus: normal facial exam Mouth: Yes Normal oral and palatal mucosa present Throat: posterior oropharynx normal Eyes: EOM: EOMs intact bilaterally Neck: Neck: normal visual inspection Chest: Chest palpation & inspection: normal inspection of the chest Resp: Effort & Inspection: normal respiratory effort Auscultation: clear to auscultation bilaterally Cardio: Rate: regular rate Rhythm: regular rhythm Heart sounds: no murmurs GI: GI Palp: Yes Soft to palpation, No Tenderness to palpation present (GI), No Guarding due to palpation present (GI) and No Rigid due to palpation Auscultation: normal bowel sounds Back/Spine/Pelvis: Back: no CVA tenderness Skin: General
[2022-11-16 19:59] LABS: Lactic Acid Reflex 1.1 mmol/L (0.7-2.0)
[2022-11-16 20:02] LABS: Alanine Aminotransferase 23 U/L (6-35); Albumin Level 3.6 g/dL (3.5-5.1); Alkaline Phosphatase 36 U/L (38-126); Anion Gap 6 mmol/L (8-16); Aspartate Amino Transferase 28 U/L (14-36); Bilirubin,Total 0.3 mg/dL (0.2-1.3); Blood Urea Nitrogen 7 mg/dL (7-17); Carbon Dioxide 25 mmol/L (22-30); Chloride 106 mmol/L (98-107); Estimated CRCL calculation 107 ml/min; Estimated Glomerular Filt Rate > 60; Glucose 112 mg/dL (65-110); Lipase 85 U/L (23-300); Potassium 3.6 mmol/L (3.4-5.0); Sodium 137 mmol/L (137-145)
[2022-11-16 20:07] LABS: Bacteria Urine Trace /hpf; Mucus Urine Rare /lpf; RBC Urine 0-2 /hpf (0-2); Squamous Epithelial Cell Urine Occasional /hpf (Few); WBC Urine 0-3 /hpf
[2022-11-16 20:09] LABS: Add Urine Microscopic? YES
[2022-11-16 20:25] LABS: Influenza A QL RT-PCR Negative (Negative); Influenza B QL RT-PCR Negative (Negative); RSV RNA, RT-PCR Negative (Negative); SARS-CoV-2 RNA PCR Positive
[2022-11-16] MEDS: KETOROLAC 30 MG/ML VIAL (*BKC) IV PUSH (20:39)
== END 2022-11-16 21:27 | disposition home or self-care (01) ==
PROVIDERS: Emergency Provider General Practice; PCP Nurse Practitioner
DX: U07.1 COVID-19 (principal); I10 Essential (primary) hypertension; I25.2 Old myocardial infarction
CPT/HCPCS: 36415; 71045; 80053; 81001; 81025; 83605; 83690; 85025; 87637; 96361; 96374; 99284; J1885; J7030

== ENCOUNTER 2023-02-22 15:51 | Outpatient (CLI) | payer OTHER, SELFPAY ==
[2023-02-22 16:42] LABS: Free T4 Free Thyroxine 0.98 ng/dL (0.76-1.46); Thyroid Stimulating Hormone 1.16 uIU/mL (0.36-3.74)
[2023-03-03 05:11] LABS: Total Triiodothyronine (T3) 109.9 ng/dL (76-181)
== END 2023-02-22 15:52 | disposition home or self-care (01) ==
PROVIDERS: PCP Nurse Practitioner
DX: E05.90 Thyrotoxicosis, unspecified without thyrotoxic crisis or storm (principal)
CPT/HCPCS: 36415; 84439; 84443; 84480

== ENCOUNTER 2023-03-13 20:20 | Emergency (ER) | payer OTHER, SELFPAY ==
--- NOTE | ~2023-03-13 | XR_ITS ---
EXAMINATION: XR tibia fibula LT 2V DATE: 03/13/2023 21:03 INDICATION: Left lower leg pain TECHNIQUE: Anteroposterior and lateral views of the left tibia and fibula were obtained. COMPARISON: None. FINDINGS: Alignment is normal. No fracture. No periosteal reaction or suspicious lytic or blastic bone lesions. Joint spaces are normal. Soft tissues are unremarkable. No left knee or ankle joint effusion. IMPRESSION: 1. Negative left tibia/fibula radiographs. Reviewed, dictated and finalized at location A.
[2023-03-13 20:22] VITALS: BP 142/93; PULSE 91; RESP 18; TEMP 36.9; O2SAT 99
--- NOTE | 2023-03-13 20:54 | ED.GENADULT ---
HPI - General Adult General Chief complaint: Unspecified Stated complaint: sore throat, leg pain Time Seen by Provider: 03/13/23 20:27 History of Present Illness HPI narrative: Patient is a 32-year-old male here for evaluation of left leg pain x3 days. She was seen by primary care doctor and was told it may be sciatica which has been taking muscle relaxants, Mobic, Tylenol without relief of her symptoms. States her symptoms have only worsened, and today she developed a sore throat and feels fatigued. She presented to [place] emergency department and had numerous labs and viral swabs done that were all reassuring. Patient showed me results on her phone, labs that were drawn were CBC, CMP, CK, D-dimer, COVID, flu and strep. The only abnormality was that her potassium was 3.1 and her white blood cell count was 11.4. Patient is concerned that she has an infection because her nurse friend commented on her white blood cell count. Related Data Home Medications Medication Instructions Recorded Confirmed buprenorphine 8 mg-naloxone 2 mg 1 tablet sublingual BID 02/10/23 03/06/23 sublingual tablet lorazepam 0.5 mg tablet (Ativan) 1 mg PO BID PRN Anxiety 02/10/23 03/06/23 Allergies Allergy/AdvReac Type Severity Reaction Status Date / Time No Known Allergies Allergy Verified 03/13/23 20:44 Review of Systems Review of Systems: Gen.: Denies fevers or chills Eyes: Denies eye pain or visual change ENT: Sore throat Respiratory: Denies shortness of breath or cough CV: Denies chest pain or palpitations GI: Denies abdominal pain nausea, emesis or diarrhea denies burning, urgency, frequency or hematuria Musculoskeletal reports leg pain Neuro: Denies numbness, tingling, weakness or focal weakness Skin: Denies rash Except as documented, all other systems reviewed and negative [facility] Past Medical History Medical History Chest pain HTN (hypertension) Left sided abdominal pain Migraines NSTEMI (non-ST elevated myocardial infarction) Surgical History Surgical History History of appendectomy Family History Family History Mother Cerebrovascular accident Cancer Father Heart disease Social History Social History (Updated 03/06/23 @ 14:11 by Jessica Resendiz [facility]) Smoking packs per day: 0.5 Smoking cigarettes per day: 10.0 Years smoked: 10 Smoking pack-years: 5.00 Smoking status: Former smoker Tobacco type: e-cigarettes/vaping Alcohol intake: never Substance use: former Substance use type: opiates Lack of Transportation: No Lack of Food: Never True Current Housing: I Have Housing Concerned About Future Housing: No Difficulty Paying Gas/Electric Bills: No Difficulty Paying for Meds: No Currently Unemployed: No Education: High School Diploma/GED Difficulty w/ Childcare or Family Care: No Living arrangements: with friend(s) Spiritual care concerns: No Exam Narrative: APPEARANCE: Tearful, anxious appearing Head: Normocephalic and atraumatic. EYES: PERRLA/EOMI, conjunctivae clear NOSE: No nasal drainage EARS: External ear normal in appearance THROAT: Oropharynx is clear. Mucous membranes are moist. NECK: There is no swelling of the tonsils or neck swelling appreciated. Supple. No adenopathy, no masses. RESPIRATORY: Airway patent, respirations nonlabored. Clear to auscultation bilaterally, no rales, rhonchi, wheezing. CARDIOVASCULAR: 2+ DP and PT pulses bilaterally. Regular rate and rhythm without murmurs, rubs, or gallops. ABDOMINAL: Normoactive bowel sounds. Soft, nontender, nondistended. No rebound tenderness or guarding. MUSCULOSKELETAL: There is no tenderness to palpation along the bones of the left lower extremity. extremities are warm and well-perfused. Moves all extremities well. No e
[2023-03-13] MEDS: POTASSIUM CHLORIDE 20 MEQ TABLET PO (21:06)
[2023-03-13] MEDS: ACETAMINOPHEN 325 MG TABLET 650 MG PO (21:06)
[2023-03-13 21:10] VITALS: O2SAT 96
[2023-03-13 21:19] VITALS: O2SAT 99
[2023-03-13 21:32] VITALS: BP 128/85; PULSE 75; O2SAT 100
[2023-03-13 22:22] VITALS: BP 132/95; PULSE 68; RESP 20; O2SAT 98
== END 2023-03-13 22:26 | disposition home or self-care (01) ==
PROVIDERS: Emergency Provider Physician Assistant; PCP Physician Assistant
DX: M25.50 Pain in unspecified joint (principal); E87.6 Hypokalemia; I10 Essential (primary) hypertension; I25.2 Old myocardial infarction; Z87.891 Personal history of nicotine dependence
CPT/HCPCS: 36415; 73590; 83735; 99283; A9270

== ENCOUNTER 2023-03-14 13:56 | Emergency (ER) | payer OTHER, SELFPAY ==
--- NOTE | ~2023-03-14 | XR_ITS ---
EXAMINATION: XR chest 2V Exam Date/Time: 03/14/2023 14:48 CDT HISTORY: chest pain-LT SIDE,ACUTE Comparison: 11/16/2022. RESULT: Lines, tubes, and devices: None. Lungs and pleura: Clear. Cardiomediastinal silhouette: Stable. Other: No acute osseous or upper abdominal finding. IMPRESSION: No acute cardiopulmonary process. Reviewed, dictated and finalized at location K.
--- NOTE | 2023-03-14 13:59 | ED.GENADULT ---
HPI - General Adult General Chief complaint: Unspecified Stated complaint: ANXIETY Time Seen by Provider: 03/14/23 13:58 History of Present Illness HPI narrative: The patient is a 32-year-old female who presents with multiple complaints. She is tearful. She feels her legs are hurting her, and the thighs and in the calf is but no trauma to the lower extremities or elsewhere in her body. She feels her throat is sore and is closing up on her. She feels weak and tired. She is crying. She was seen by her primary care doctor and was told it may be sciatica for which she has been taking muscle relaxants, Mobic, Tylenol without relief of her symptoms.? States her symptoms have only worsened. She was seen yesterday at the ER's of both [facility] and again at [facility] in the same day, 03/13/2023. At [place] emergency department, she had numerous labs and viral swabs done that were all negative: CBC, CMP, CK, D-dimer, COVID, flu and strep.? The only abnormality was that her potassium was 3.1 and her white blood cell count was 11.4.? The potassium was supplemented. She was seen at [facility] last night: had Xrays of the leg that was negative (as expected), and had a normal magnesium level. She was discharged. The patient does take seboxone, and was started on Pristiq recently for depression/anxiety. She feels she is reacting to Pristiq and does not want to take it. It was prescribed by her PCP. She was supposed to see her PCP today but came to the ER instead. She also complains of nonspecific chest pain. Feels that she can't breathe. Feeling anxious. She is concerned that she has cancer and wants to be checkout out for that as well. Related Data Home Medications Medication Instructions Recorded Confirmed buprenorphine 8 mg-naloxone 2 mg 1 tablet sublingual BID 02/10/23 03/14/23 sublingual tablet lorazepam 0.5 mg tablet (Ativan) 1 mg PO BID PRN Anxiety 02/10/23 03/14/23 desvenlafaxine 50 mg 50 mg PO DAILY 03/14/23 03/14/23 tablet,extended release 24 hour meloxicam 15 mg tablet 15 mg PO BID 03/14/23 03/14/23 tizanidine 2 mg tablet 2 mg PO BID 03/14/23 03/14/23 Allergies Allergy/AdvReac Type Severity Reaction Status Date / Time No Known Allergies Allergy Verified 03/14/23 14:07 Review of Systems Review of Systems: All systems reviewed & are unremarkable except as noted in HPI and below Constitutional: Constitutional: Denies chills, Denies excessive sweating, Reports fatigue, Denies fever(s), Denies headache(s) and Reports weakness Eyes: Eyes: Denies change in vision and Denies photophobia ENT: Denies dizziness, Denies headache(s), Denies lip swelling, Denies nasal congestion, Reports sore throat and Denies tongue swelling Cardiovascular: Cardiovascular: Reports chest pain, Denies syncope, Reports rapid heart rate and Reports dyspnea Respiratory: Respiratory: Denies cough, Reports dyspnea and Denies wheezing Gastrointestinal: Gastrointestinal: Denies abdominal pain, Denies constipation, Denies dysphagia, Denies diarrhea, Denies nausea and Denies vomiting Genitourinary: Genitourinary: Denies hematuria, Denies urinary frequency, Denies dysuria and Denies urinary urgency Musculoskeletal: Musculoskeletal: Denies back pain, Reports myalgias, Denies arthralgias and Denies joint swelling Integumentary/Breasts: Skin/Breast: Denies pruritus, Denies erythema and Denies rash Neurologic: Denies confusion, Denies dizziness, Denies syncope, Denies headache(s), Denies focal weakness, Denies numbness and Reports weakness Psychiatric: Psychiatric: Reports anxiety, Denies confusion and Reports depression Endocrine: Endocrine: Denies excessive sweating and Reports fatigue Hematologic/Lymphatic: Hematologic/Lymphatic: Denies easy bleeding and Denies easy bruising Allergic/Immunologic: Allergic/Immunologic: Denies lip swelling, Denies tongue swelling and Denies wheezing PMFSH Past Medical History Medical History (
[2023-03-14 14:00] VITALS: BP 153/97; PULSE 112; RESP 24; TEMP 37.2; O2SAT 96
--- NOTE | 2023-03-14 14:29 | ECG_ITS ---
Measurements Intervals [place] Rate: 83 P: 57 VT: 149 QRS: -12 QRSD: 85 T: 59 QT: 337 QTc: 397 Interpretive Statements SINUS RHYTHM BASELINE ARTIFACT- I, II, III, AVR, AVL, AVF, V1-V6 NORMAL ECG COMPARED TO ECG 06/11/2022 16:55:36 NO SIGNIFICANT CHANGES Electronically Signed On 03-14-2023 15:42:38 CDT by Andrew Judge D.O.
[2023-03-14] MEDS: SODIUM CHLORIDE 0.9% IV 1,000 ML 999 ML IV CONT (14:46)
[2023-03-14] MEDS: KETOROLAC 30 MG/ML VIAL (*BKC) IV PUSH (14:46)
[2023-03-14] MEDS: LORazepam INJ (*CRX) 2 MG/ML VIAL 0.5 MG IV PUSH (14:46)
[2023-03-14 14:51] LABS: Basophils Absolute Auto 0.08 K/mm3 (0.00-0.10); Basophils Percent Auto 0.8 % (0.0-1.0); Eosinophils Absolute Auto 0.02 K/mm3 (0.02-0.50); Eosinophils Percent Auto 0.2 % (1.0-6.0); Hematocrit 43.3 % (35.0-49.0); Hemoglobin 14.6 g/dL (12.0-15.0); Immature Granulocyte Absolute 0.03 K/mm3 (0.00-0.00); Immature Granulocyte Percent A 0.3 % (0.0-0.0); Lymphocytes Absolute Auto 1.46 K/mm3 (1.10-4.50); Lymphocytes Percent Auto 14.4 % (18.0-42.0); Mean Corpuscular HGB Conc 33.7 g/dL (32.0-36.0); Mean Corpuscular Hemoglobin 31.8 pg (27.0-31.0); Mean Corpuscular Volume 94.3 fL (78.0-102.0); Mean Platelet Volume 9.7 fl (9.2-11.8); Monocytes Absolute Auto 0.36 K/mm3 (0.10-0.90); Monocytes Percent Auto 3.6 % (2.0-11.0); Neutrophils Absolute Auto 8.2 K/mm3 (1.7-7.2); Neutrophils Percent Auto 80.7 % (50.0-70.0); Platelet Count Result 284 K/mm3 (150-420); Red Blood Count 4.59 M/mm3 (4.20-5.40); Red Cell Distribution Width 11.9 % (11.6-14.4); White Blood Count 10.1 K/mm3 (4.8-10.8)
[2023-03-14 14:53] VITALS: BP 141/78; PULSE 98; RESP 18; O2SAT 97
[2023-03-14 14:53] LABS: Appearance Urine Clear (Clear); Bilirubin Urine Negative (Negative); Blood Urine Trace-Intact (Negative); Color Urine Light Yellow (Yellow); Glucose Urine UA Negative (Negative); Ketones Urine 1+ (Negative); Leukocyte Esterase Ur Negative LEU/UL (Negative); Nitrate Urine Negative (Negative); Protein Urine Negative (Negative); Specific Grav Ur <= 1.005 (1.010-1.020); Urobilinogen Urine 0.2 mg/dL (0.2-1.0)
[2023-03-14 14:55] LABS: Pregnancy On Board Control Positive; Urine Pregnancy Test Negative
[2023-03-14 15:01] LABS: Add Urine Microscopic? YES; RBC Urine 0-2 /hpf (0-2); Squamous Epithelial Cell Urine Rare /hpf (Few); WBC Urine None seen /hpf (0-3)
[2023-03-14 15:02] LABS: Bacteria Urine Trace /hpf
[2023-03-14 15:09] LABS: Alanine Aminotransferase 18 U/L (14-59); Albumin Level 4.3 g/dL (3.4-5.0); Alkaline Phosphatase 44 U/L (46-116); Anion Gap 8 mmol/L (8-16); Aspartate Amino Transferase 16 U/L (15-37); Bilirubin,Total 0.5 mg/dL (0.00-1.00); Blood Urea Nitrogen 7 mg/dL (7-18); Calcium 8.9 mg/dL (8.5-10.1); Carbon Dioxide 30 mmol/L (21-32); Chloride 101 mmol/L (98-108); Creatine Kinase 53 U/L (26-192); Estimated CRCL calculation 89 ml/min; Estimated Glomerular Filt Rate > 60; Ethanol 3 mg/dL (0-6); Glucose 101 mg/dL (70-99); Lactic Acid Reflex 0.7 mmol/L (0.4-2.0); Magnesium 1.9 mg/dL (1.8-2.4); Osmolality Calculated 286 mOsm/kg (285-295); Potassium 3.6 mmol/L (3.5-5.1); Sodium 139 mmol/L (136-145); Total Protein 7.6 g/dL (6.4-8.2)
[2023-03-14 15:11] LABS: CRP < 0.5 mg/dL (0.0-0.9)
[2023-03-14 15:16] LABS: Amphetamine Screen Urine Negative (Negative); Barbiturate Screen Urine Negative (Negative); Benzodiazepines Screen Urine Negative (Negative); Cannabinoid Screen Urine Negative (Negative); Cocaine Screen Urine Negative (Negative); Methadone Screen Urine Negative (Negative); Opiate Screen Urine Negative (Negative); Phencyclidine Screen Urine Negative (Negative); Strep Group A RT-PCR NOT DETECTED (Negative)
[2023-03-14 15:34] VITALS: BP 127/73; PULSE 72; RESP 16; O2SAT 99
[2023-03-14 16:13] VITALS: BP 125/67; PULSE 72; RESP 16; TEMP 36.6; O2SAT 99
== END 2023-03-14 16:15 | disposition home or self-care (01) ==
PROVIDERS: Emergency Provider Emergency Medicine; PCP Physician Assistant
DX: F41.9 Anxiety disorder, unspecified (principal); I10 Essential (primary) hypertension; I25.2 Old myocardial infarction; Z87.891 Personal history of nicotine dependence
CPT/HCPCS: 36415; 71046; 80053; 80307; 81001; 81025; 82550; 83605; 83735; 84484; 85025; 86140; 87651; 93005; 96361; 96374; 96375; 99284; J1885; J2060; J7030

== ENCOUNTER 2023-03-16 16:54 | Outpatient (RCR) | payer OTHER, SELFPAY ==
--- NOTE | 2023-03-16 17:56 | OPREHPOC ---
Outpatient Therapy Plan of Care This is a Multidisciplinary Plan of Care that may contain components documented by all disciplines (PT, OT, and ST.) PT Problem 1 PT Problem #1 Knowledge Deficit PT Goal 1 Goal The patient will demonstrate independence in a home exercise program for core stability. Target Visit 12 PT Goal 2 Goal The patient will demonstrates proper body mechanics while lifting 10 lbs from floor to waist . Target Visit 12 PT Problem 2 PT Problem #2 Pain PT Goal 1 Goal The patient will report bilateral leg pain of less than 6/10 with sitting and standing for 20 mins. Target Visit 6 PT Goal 2 Goal The patient will report bilateral leg pain of less than 3/10 with sitting and standing for 30 mins. Target Visit 12 PT Problem 3 PT Problem #3 Impaired Range of Motion PT Goal 1 Goal The patient will demonstrate pain free, functional lumbar AROM in all planes to improve ability to perform ADLs. Target Visit 12
--- NOTE | 2023-03-16 17:56 | PTOPEVAL1 ---
Assessment and note entered by Bev Arreola, PT Evaluation Information Assessment Status Evaluation Diagnosis Bilateral Sciatica Onset 03/10/23 Subjective Information Fabi reports she started having left leg pain for a day or two about 6 months ago that would resolve on its own. The pain has become a daily occurrence along the back of both legs and calf area about 3 weeks ago for unknown reasons. She denies low back pain or injuries currently or in the past. She also has not started a new activity or exercise program. She notes difficulty standing more than 10 minutes and sitting more than 10-15 minutes. She has tried heat and ice for pain which allows her to get sleep. She has also tried muscle relaxers and OTC Tylenol without relief. She went to the doctor and was referred to PT and to get a x-ray. She has not gotten the x-ray. She also c/o numbness in the left side of her inner forearm and into the palm of her hand about 6 months ago. She does have a history of neck pain . Reported Pain Level Pain Score 7: Self Report Assessment PT Clinical Summary Fabi Álvarez presents with bilateral LE pain along the posterior aspect with an insidious onset approximately 3 weeks ago. She has difficulty with standing more than 10 minutes, sitting more than 10-15 minutes, and sleeping. She objectively demonstrates decreased and painful lumbar AROM; tenderness in bilateral SIJ, gluteals, hamstrings, and gastrocnemius muscles; and positive special tests consistent with lumbar nerve root irritation . 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 She will benefit from skilled PT to address these limitations. Plan of Care Interventions Electrical Stimulation,Hot Pack/Cold Pack,Manual Therapy,Neuro Re-education,Patient/Caregiver Educati,Therapeutic Activities,Therapeutic Exercise PT Services Indicated Yes Treatment Frequency and 3 times a week for 12 visits Duration These treatments will address the objective and functional deficits as defined above. The patient will be advanced safely and appropriately in order for the patient to progress towards his/her prior level of function. Additional exercises will be introduced and as well as a comprehensive home exercise program upon discharge, if needed, ?to ensure carryover of functional gains achieved in the clinic. This
--- NOTE | 2023-03-24 17:21 | PTOPPROG ---
Assessment and note entered by Bev Arreola, PT Evaluation Information Assessment Status Re-evaluation Diagnosis Bilateral Sciatica, Cervicalgia, L arm numbness Onset 03/10/23 Subjective Information Fabi reports she has been having numbness in her left arm for about 6 months. She notes the numbness on the inner forearm and into the palm of her hand. She reports the numbness comes and goes and seems to be sporadic. She also notes that she has heaviness in her arms when she holds them overhead and feels a strain on the left side of neck. She notes pain on the left side of her neck that has been more frequent the last 6 months since starting a new job in which she is looking at 2 computer screens, one of which is to her right side. She notes difficulty with her computer work, turning her head while driving, and sleeping due to her neck and L UE symptoms. Assessment PT Clinical Summary Fabi Álvarez initiated skilled PT on 03/16/23 for bilateral LE pain. She is reporting mild improvements with less intense pain in regards to her LE pain. She has also been having neck pain and numbness in her left UE for the last 6 months. She reports difficulty with working at her computer, turning her head while driving, and sleeping due to her neck. She objectively demonstrates decreased cervical AROM in all planes , painful cervical lateral flexion and rotation to the left, irritation with left radial and ulnar nerve flossing, tenderness in the left sternocleidomastoid muscle, and altered posture. She will continue to benefit from skilled PT for bilateral LE pain and we will add treatment to address the cervical spine and UE radiculopathy as well. Plan of Care Interventions Electrical Stimulation,Hot Pack/Cold Pack,Manual Therapy,Mechanical Traction,Neuro Re-education, Patient/Caregiver Educati,Therapeutic Activities, Therapeutic Exercise PT Services Indicated Yes Treatment Frequency and 3 times a week for 8 more visits Duration These treatments will address the objective and functional deficits as defined above. The patient will be advanced safely and appropriately in order for the patient to progress towards his/her prior level of function. Additional exercises will be introduced and as well as a comprehensive home exercise program upon discharge, if needed, ?to ensure carryover of functional gains achieved in the clinic. This treatment plan has been reviewed and agreement upon by the patient.
--- NOTE | 2023-03-24 17:21 | OPREHPOC ---
Outpatient Therapy Plan of Care This is a Multidisciplinary Plan of Care that may contain components documented by all disciplines (PT, OT, and ST.) PT Problem 1 PT Problem #1 Knowledge Deficit PT Goal 1 Goal The patient will demonstrate independence in a home exercise program for core stability. Added 03/24/23: The patient will demonstrate independence in a home exercise program for cervical ROM and stability. Target Visit 12 PT Goal 2 Goal The patient will demonstrates proper body mechanics while lifting 10 lbs from floor to waist . Target Visit 12 PT Problem 2 PT Problem #2 Pain PT Goal 1 Goal The patient will report bilateral leg pain of less than 6/10 with sitting and standing for 20 mins. Target Visit 6 PT Goal 2 Goal The patient will report bilateral leg pain of less than 3/10 with sitting and standing for 30 mins. Added 03/24/23: The patient will report 3/10 or less cervical pain with working at her computer and driving. Target Visit 12 PT Problem 3 PT Problem #3 Impaired Lymphatic System PT Goal 1 Goal The patient will demonstrate pain free, functional lumbar AROM in all planes to improve ability to perform ADLs. Target Visit 12 PT Goal 2 Goal Added 03/24/23: The patient will demonstrate cervical AROM for left rotation of 60 degrees to improve driving ability. Target Visit 12
--- NOTE | 2023-05-02 17:12 | PTOPDC ---
Assessment and note entered by Bev Arreola, PT Evaluation Information Assessment Status Discharge Diagnosis Bilateral Sciatica, Cervicalgia, L arm numbness Onset 03/10/23 Subjective Information Fabi reports that her leg pain is about the same since intitiating PT. She is having difficulty with standing more than 10 minutes, driving, and sitting in her chair for work. She feels like she has weakness in her legs as well. She notes her neck pain has decreased quite a bit and she is able to perform seated activities for work with more ease as well as driving. She is scheduled to start pain management for her lower back next week and has an appointment with neurology in May. Reported Pain Level Pain Score 0,4: Self Report Assessment PT Clinical Summary Fabi Álvarez has completed 12 skilled PT visits for bilateral sciatica, cervicalgia, and left arm numbness. She is reporting improvements in her neck pain with less pain and improved ability to sit and perform desk work. She has not had much improvement in her LE pain though and still feels limited with standing, driving, and prolonged sitting. She objectively demonstrates overall improvement in lumbar and cervical AROM, less tenderness in the cervical spine, and improved strength. She has met 2 out of 10 goals and has not been able to progress due to continue pain. She will be going to pain management starting next week. She will be discharged from skilled PT. Plan of Care PT Services Indicated Yes
== END 2023-05-02 17:19 | disposition home or self-care (01) ==
LOC: CHSPT 16:54
DX: M54.31 Sciatica, right side (principal)
CPT/HCPCS: 97012; 97014; 97110; 97140; 97161; 97750; G0283

== ENCOUNTER 2023-03-20 17:08 | Outpatient (CLI) | payer OTHER, SELFPAY ==
--- NOTE | ~2023-03-20 | XR_ITS ---
EXAMINATION: XR lumbar spine 2-3V DATE: 03/20/2023 17:43 INDICATION: Low back pain TECHNIQUE: Anteroposterior and lateral views of the lumbar spine, and cone-down lateral view of the l umbosacral junction were obtained. COMPARISON: None. FINDINGS: There are 3 mm of retrolisthesis of L5 on S1. There is mild loss of intervertebral disc spa ce height at L5-S1. The vertebral body heights are maintained. There is no fracture. There is mild fa cet joint osteoarthritis of the lower lumbar spine. IMPRESSION: 1. Mild lumbar spondylosis at L5-S1 without acute findings. Reviewed, dictated and finalized at location F.
--- NOTE | ~2023-03-20 | XR_ITS ---
EXAMINATION:XR_[id number]_CR DATE: 03/20/2023 17:43 INDICATION: Neck pain TECHNIQUE: AP, lateral, and odontoid views of the cervical spine are provided. COMPARISON: None FINDINGS: There is reversal of the normal cervical lordosis. Alignment is normal. The odontoid proces s is intact. No fracture is identified. There is mild loss of intervertebral disc space height at C5- C6. The vertebral body heights are maintained. Prevertebral soft tissues are normal. IMPRESSION: 1. Mild cervical spondylosis without acute findings. Reviewed, dictated and finalized at location F.
--- NOTE | ~2023-03-20 | XR_ITS ---
EXAMINATION: XR pelvis 1-2V INDICATION: Chronic low back pain with bilateral sciatica TECHNIQUE: AP view the pelvis is obtained. COMPARISON: None available FINDINGS: Bone alignment is normal. There is no fracture. The visualized osseous structures are unrem arkable. The descending colon has a somewhat featureless appearance. IMPRESSION: 1. No acute osseous abnormality. 2. Featureless appearance of the descending colon which is nonspecific but can be seen in the setting of inflammatory bowel disease. Recommend clinical correlation. Reviewed, dictated and finalized at location F. IMPRESSION: 1. No acute osseous abnormality. 2. Featureless appearance of the descending colon which is nonspecific but can be seen in the setting of inflammatory bowel disease. Recommend clinical correl ation.
== END 2023-03-20 17:09 | disposition home or self-care (01) ==
LOC: CHSIMG 17:16
DX: M54.42 Lumbago with sciatica, left side (principal); M54.2 Cervicalgia; M43.06 Spondylolysis, lumbar region; M43.02 Spondylolysis, cervical region
CPT/HCPCS: 72040; 72100; 72170

== ENCOUNTER 2023-04-23 13:36 | Outpatient (CLI) | payer OTHER, SELFPAY ==
--- NOTE | ~2023-04-23 | MR_ITS ---
EXAMINATION: MR cervical spine wo/w con DATE: 04/23/2023 14:55 INDICATION: TECHNIQUE: Magnetic resonance imaging (MRI) of the cervical spine was performed without and with 14 m L MultiHance intravenous contrast. Sequences included sagittal T2-weighted FSE, sagittal T2-weighted FS FSE, sagittal T1-weighted FSE, axial MERGE, and axial T2-weighted FSE. Postcontrast sequences: Sag ittal T1 FSE FS and axial T1 FSE FS. COMPARISON: X-ray C-spine 03/20/2023 FINDINGS: Motion limited sagittal T2 FSE and axial T2 propeller sequences. Craniocervical association and atlantoaxial joint are intact. Normal alignment. Cervical straightening which can occur with pos itioning or muscle spasm. Vertebral body heights are maintained. Multilevel loss of disc hydration. T he cord signal is normal. No abnormal enhancing lesion. Normal cervicomedulary junction. The followin g disc levels are specifically discussed: C2-C3: The disc does not extend beyond the endplate margin. There is no uncovertebral joint osteoarth ritis. There is no facet joint osteoarthritis. There is no neural foraminal stenosis. There is no amie tral canal stenosis. C3-C4: The disc does not extend beyond the endplate margin. There is no uncovertebral joint osteoarth ritis. There is no facet joint osteoarthritis. There is no neural foraminal stenosis. There is no amie tral canal stenosis. C4-C5: The disc does not extend beyond the endplate margin. There is mild right uncovertebral joint o steoarthritis. There is no facet joint osteoarthritis. There is no neural foraminal stenosis. There i s no central canal stenosis. C5-C6: The disc does not extend beyond the endplate margin. There is mild left and moderate right unc overtebral joint osteoarthritis. There is no facet joint osteoarthritis. There is and mild right neur al foraminal stenosis. There is no central canal stenosis. C6-C7: The disc does not extend beyond the endplate margin. There is mild right uncovertebral joint o steoarthritis. There is no facet joint osteoarthritis. There is no neural foraminal stenosis. There i s no central canal stenosis. C7-T1: The disc does not extend beyond the endplate margin. There is mild bilateral uncovertebral shani nt osteoarthritis. There is no facet joint osteoarthritis. There is no neural foraminal stenosis. The re is no central canal stenosis. IMPRESSION: Multilevel mild degenerative disc disease and uncovertebral joint hypertrophy. Mild right neural foraminal narrowing at C5-6. Reviewed, dictated and finalized at location K.
== END 2023-04-23 13:37 | disposition home or self-care (01) ==
LOC: ANHIMG 13:40
DX: M50.30 Other cervical disc degeneration, unspecified cervical region (principal)
CPT/HCPCS: 72156; A9577

== ENCOUNTER 2023-05-15 15:43 | Outpatient (CLI) | payer OTHER, SELFPAY ==
[2023-05-15 16:22] LABS: Cholesterol 117 mg/dL (0-200); HDL Direct 36 mg/dL (40-60); LDL Cholesterol Calculated 67 mg/dL (<130); Triglycerides 71 mg/dL (0-150)
== END 2023-05-15 15:44 | disposition home or self-care (01) ==
PROVIDERS: Visit Provider Internal Medicine Cardiovascular Disease
DX: E78.5 Hyperlipidemia, unspecified (principal); K59.00 Constipation, unspecified
CPT/HCPCS: 36415; 80061

== ENCOUNTER 2023-05-23 14:23 | Outpatient (CLI) | payer OTHER, SELFPAY ==
--- NOTE | ~2023-05-23 | XR_ITS ---
EXAMINATION: XR abdomen obstructive series DATE: 05/23/2023 14:45 INDICATION: Constipation. TECHNIQUE: Upright and supine views of the abdomen on 3 radiographs were obtained. COMPARISON: Abdomen radiographs 07/13/2022 FINDINGS: There are no dilated loops of bowel. There is a moderate volume of stool in the colon. Ther e is a phlebolith in left pelvis. No free intraperitoneal gas. IMPRESSION: 1. Normal bowel gas pattern. Reviewed, dictated and finalized at location A.
== END 2023-05-23 14:24 | disposition home or self-care (01) ==
LOC: CHSIMG 14:26
DX: K59.00 Constipation, unspecified (principal)
CPT/HCPCS: 74019

== ENCOUNTER 2023-05-30 15:39 | Outpatient (CLI) | payer OTHER, SELFPAY ==
--- NOTE | ~2023-05-30 | MR_ITS ---
EXAMINATION: MR lumbar spine wo con DATE: 05/30/2023 16:45 INDICATION: Other spondylosis. Low back pain. TECHNIQUE: Magnetic resonance imaging (MRI) of the lumbar spine was performed without intravenous con trast. Sequences included sagittal T2-weighted FSE, sagittal T2-weighted FS FSE, sagittal T1-weighted FSE, and axial T2-weighted FSE. COMPARISON: Lumbar spine radiograph 03/20/2023 FINDINGS: Bone alignment is normal. Vertebral body heights and intervertebral disc heights are normal . The distal spinal cord signal intensity is normal. The conus medullaris is at L1. The following dis c levels are specifically discussed: L1-L2: The disc does not extend beyond the endplate margin. There is mild bilateral facet joint osteo arthritis. There is no neural foraminal stenosis. There is no central canal stenosis. L2-L3: The disc does not extend beyond the endplate margin. There is mild bilateral facet joint osteo arthritis. There is no neural foraminal stenosis. There is no central canal stenosis. L3-L4: There is a left foraminal protrusion. There is mild bilateral facet joint osteoarthritis. Ther e is mild left neural foraminal stenosis. There is no central canal stenosis. L4-L5: The disc does not extend beyond the endplate margin. There is moderate right and severe left f acet joint osteoarthritis. There is no neural foraminal stenosis. There is no central canal stenosis. L5-S1: There is a right foraminal extrusion. There is moderate bilateral facet joint osteoarthritis. There is mild right neural foraminal stenosis. There is no central canal stenosis. IMPRESSION: 1. Mild lumbar spondylosis. Reviewed, dictated and finalized at location A. IMPRESSION: 1. Mild lumbar spondylosis.
== END 2023-05-30 15:40 | disposition home or self-care (01) ==
PROVIDERS: Visit Provider Nurse Practitioner Adult Health
DX: M47.26 Other spondylosis with radiculopathy, lumbar region (principal)
CPT/HCPCS: 72148

== ENCOUNTER 2023-05-31 09:15 | Outpatient (CLI) | payer OTHER, SELFPAY ==
--- NOTE | ~2023-05-31 | US_ITS ---
EXAMINATION: US abdomen complete DATE: 05/31/2023 10:25 INDICATION: Low abdominal pain. TECHNIQUE: Multiple grayscale and Doppler ultrasound images of the abdomen were obtained. COMPARISON: None FINDINGS: Abdominal aorta is normal in caliber. The visualized portions of the head and body of the p ancreas are normal. Inferior vena cava is normal. The liver is normal without focal lesion. There is normal flow in main portal vein. The gallbladder is normal in size. No gallstones or gallbladder wall thickening. There is no sonographic Cochran sign. The common duct is normal and measures 2 mm . Calci fications in the spleen are consistent with old granulomatous disease. The kidneys are normal in size . IMPRESSION: 1. No etiology for the patient's symptoms. Reviewed, dictated and finalized at location A.
--- NOTE | ~2023-05-31 | US_ITS ---
EXAMINATION: US pelvic complete w TV DATE: 05/31/2023 10:25 INDICATION: Constipation TECHNIQUE: Multiple transabdominal and endovaginal sonographic images of the pelvis were obtained. COMPARISON: None. FINDINGS: The uterus measures 9.5 x 5.9 x 4.0 cm. The endometrial complex measures 5 mm. A nabothian cyst is noted in the cervix. The left ovary is not visualized however no left adnexal abnormality is seen. The right ovary measures 3.0 x 2.4 x 2.7 cm. There is normal vascular flow in the right ovary. There is a small amount of likely physiologic free fluid in the pelvis. IMPRESSION: 1. No sonographic correlate for the patient's symptoms. Reviewed, dictated and finalized at location B.
== END 2023-05-31 09:16 | disposition home or self-care (01) ==
LOC: CHSIMG 09:18
DX: R10.30 Lower abdominal pain, unspecified (principal)
CPT/HCPCS: 76700; 76830; 76856

== ENCOUNTER 2023-08-24 14:54 | Outpatient (CLI) | payer OTHER, SELFPAY ==
--- NOTE | 2023-08-24 15:17 | ECHOL_ITS ---
Patient Info Name: Fabi Álvarez Age: 33 years : 1990 Gender: Female Ht: 63 in Wt: 160 lbs BSA: 1.82 m2 HR: 62 bpm BP: 129 / 91 mmHg Technical Quality: Good Exam Date: 08/24/2023 3:28 PM Exam Location: Echo Lab Patient Status: Outpatient Admit Date: 08/24/2023 Staff Ordering Physician: Andrew Judge DO Administrative Law Judge: Rupali Lake RDCS Attending Provider: Andrew Judge DO Referring Physician: Alfie LAGUNA; Exam Type: CA echo limited Study Info Indications - assess pericardium for fluid - chest pain Limited two-dimensional transthoracic echocardiogram is performed. Summary 1. Limited echocardiogram to assess for pericardial effusion. 2. There is no pericardial effusion. Pericardium/Pleural Limited echocardiogram to assess for pericardial effusion. There is no pericardial effusion. Report Signatures
== END 2023-08-24 14:55 | disposition home or self-care (01) ==
PROVIDERS: PCP Nurse Practitioner Family; Visit Provider Internal Medicine Cardiovascular Disease
DX: R07.9 Chest pain, unspecified (principal)
CPT/HCPCS: 93308

== ENCOUNTER 2023-10-25 13:48 | Outpatient (CLI) | payer OTHER, SELFPAY ==
--- NOTE | ~2023-10-25 | US_ITS ---
EXAMINATION: US soft tissue upper back DATE: 10/25/2023 14:06 INDICATION: subcutaneous mass of back . TECHNIQUE: Grayscale and Doppler ultrasound images of the right lower back soft tissues were obtained . COMPARISON: None. FINDINGS: The area of clinical concern in the soft tissues of the right lower back was sonographicall y interrogated, revealing normal dermal tissue, subcutaneous fat, and underlying muscle. No solid or cystic mass detected. IMPRESSION: No sonographic abnormalities detected in the area of clinical concern. 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
== END 2023-10-25 13:49 | disposition home or self-care (01) ==
LOC: CHSIMG 13:49
PROVIDERS: PCP Nurse Practitioner Family; Visit Provider Nurse Practitioner Family
DX: R22.2 Localized swelling, mass and lump, trunk (principal)
CPT/HCPCS: 76604

== ENCOUNTER 2023-11-09 00:38 | Day surgery (SDC) | payer OTHER, SELFPAY ==
[2023-10-19 12:23] VITALS: BMI 29.2
--- NOTE | 2023-11-07 12:33 | SUR.PREOP ---
Patient called regarding upcoming procedure. Went over preop instructions, appointment times, and procedure prep
[2023-11-09 11:23] VITALS: BP 124/85; PULSE 67; RESP 18; TEMP 36.4; O2SAT 100; BMI 30.5
[2023-11-09] MEDS: LACTATED RINGERS 1,000 ML 150 ML IV CONT (11:36)
--- NOTE | 2023-11-09 11:52 | WPDANESEPPF ---
Anes - Initial Pre Proc Eval Procedure: Operation Date: 11/09/23 13:00 Proposed Procedures p Esophagogastroduodenoscopy - Neo Gonzalez MD Date/Time: 11/09/23 11:52 Surgeon: Neo Gonzalez MD Pre Op Diagnosis: abdominal pain, nausea Patient Data Age: 33 Gender: F Height: 1.6 m Weight: 78.2 kg Last Vital Signs Temp 97.6 F 11/09/23 11:23 Pulse 67 11/09/23 11:23 Resp 18 11/09/23 11:23 BP 124/85 11/09/23 11:23 Pulse Ox 100 11/09/23 11:23 O2 Del Method Room Air 11/09/23 11:23 Allergies Allergy/AdvReac Type Severity Reaction Status Date / Time No Known Allergies Allergy Verified 11/09/23 11:21 Home Medications Medication Instructions Recorded Confirmed Type losartan 50 mg tablet 50 mg PO DAILY 10/19/23 10/19/23 History propranolol 20 mg tablet 30 mg PO BID 10/19/23 10/19/23 History buprenorphine 8 mg-naloxone 2 mg 1 film buccal DAILY 11/03/23 11/07/23 History sublingual film (Suboxone) mirtazapine 15 mg tablet (Remeron) 15 mg PO HS 11/03/23 11/07/23 History ubrogepant 100 mg tablet (Ubrelvy) 100 mg PO ONCE PRN migraine 11/03/23 11/09/23 Rx headache #14 tabs Patient hx anesthesia problems: none Family hx anesthesia problems: none Results Review: All pre-operative results and documents have been reviewed as part of the pre-operative evaluation. [facility] Past Medical History Medical History (Updated 11/03/23 @ 15:23 by Ashley Martin MD) Chest pain HTN (hypertension) Irritable bowel syndrome with constipation Left sided abdominal pain Left upper quadrant abdominal pain Migraines Narcotic abuse in remission NSTEMI (non-ST elevated myocardial infarction) Surgical History Surgical History History of appendectomy Family History Family History Mother Cerebrovascular accident Cancer Father Heart disease Social History Social History (Updated 11/03/23 @ 14:56 by DIONISIO Lopez Smoking packs per day: 0.5 Smoking cigarettes per day: 10.0 Years smoked: 1.5 Smoking pack-years: 0.75 Smoking status: Former smoker Tobacco type: e-cigarettes/vaping Second hand tobacco smoke exposure: No Alcohol intake: current Drinks per week: 0 Substance use: current Substance use type: prescription drug Other substance usage details: vapes Do You Feel Safe in your Home?: Yes Lack of Transportation: No Lack of Food: Never True Current Housing: I Have Housing Concerned About Future Housing: No Difficulty Paying Gas/Electric Bills: No Difficulty Paying for Meds: No Currently Unemployed: No Education: High School Diploma/GED Difficulty w/ Childcare or Family Care: No Living arrangements: with family Spiritual care concerns: No Anes - Eval Final PreProcedure Day of Procedure 11/09/23 11:52 Patient weight: obese Heart: regular rate and rhythm Lungs: clear to auscultation Airway: Mallampati scale class II Neurological: alert and oriented Last oral intake: >/= 8 hours ASA classification: III Emergent: no Anesthetic plan: proceed Anesthesia type and monitoring: general GIVS and standard monitoring Results Review: All pre-operative results and documents have been reviewed as part of the pre-operative evaluation. Informed Consent: The patient's anesthetic plan and its attendant risks and benefits were discussed with the patient/family/POA. Questions were solicited and answers provided to the satisfaction of the patient/family/POA.
--- NOTE | 2023-11-09 12:18 | WPDHPUPDATE1 ---
History and Physical Update Update Date/Time: 11/09/23 12:18 History and Physical has been reviewed, including an updated exam of the patient. There are NO changes in the patient's condition. Risks, benefits, and alternatives have been discussed and questions answered. Patient agrees to proceed with procedure.
[2023-11-09 12:40] VITALS: BP 112/76; PULSE 74; RESP 16; O2SAT 98
[2023-11-09 12:50] VITALS: BP 113/75; PULSE 69; RESP 14; O2SAT 100
[2023-11-09 13:00] VITALS: BP 120/88; PULSE 63; RESP 12; O2SAT 100
== END 2023-11-09 13:08 | disposition home or self-care (01) ==
PROVIDERS: PCP Nurse Practitioner Family; Visit Provider Internal Medicine Gastroenterology
PROC: 0DJ08ZZ Inspection of Upper Intestinal Tract, Via Natural or Artificial Opening Endoscopic (ICD-10-PCS; CPT 43235; principal; 2023-11-09 13:00)
DX: K21.00 Gastro-esophageal reflux disease with esophagitis, without bleeding (principal); K29.50 Unspecified chronic gastritis without bleeding; K29.80 Duodenitis without bleeding; K58.1 Irritable bowel syndrome with constipation; I10 Essential (primary) hypertension; F17.290 Nicotine dependence, other tobacco product, uncomplicated; E66.9 Obesity, unspecified; Z68.30 Body mass index [BMI] 30.0-30.9, adult; Z98.890 Other specified postprocedural states; Z86.79 Personal history of other diseases of the circulatory system; Z82.49 Family history of ischemic heart disease and other diseases of the circulatory system; Z80.9 Family history of malignant neoplasm, unspecified
CPT/HCPCS: 43239; 88305; J2001; J2704; J7120

== ENCOUNTER 2023-11-14 13:54 | Outpatient (CLI) | payer OTHER, SELFPAY ==
--- NOTE | ~2023-11-14 | US_ITS ---
Renal-Bladder ultrasound Clinical History: Left flank pain Technique: Real-time sonographic imaging of the kidneys and urinary bladder was performed. Findings: The right kidney measures 10.2 cm in length and the left kidney measures 10.5 cm. There is no hydronephrosis or renal calculus identified. Renal cortical echogenicity is within normal limits. No renal mass lesion is identified. The urinary bladder is moderately distended at the time of this exam. No intraluminal echoes are iden tified. No abnormal wall thickening is seen. Impression: Unremarkable ultrasound of the kidneys and urinary bladder. Reviewed, dictated and finalized at location M. 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
== END 2023-11-14 13:55 | disposition home or self-care (01) ==
LOC: CHSIMG 13:55
PROVIDERS: PCP Nurse Practitioner Family; Visit Provider Nurse Practitioner Family
DX: R10.9 Unspecified abdominal pain (principal)
CPT/HCPCS: 76770

== ENCOUNTER 2023-12-29 14:40 | Outpatient (CLI) | payer OTHER, SELFPAY ==
--- NOTE | ~2023-12-29 | MR_ITS ---
EXAMINATION: MR brain/brain stem wo/w con DATE: 12/29/2023 15:49 INDICATION: Left-sided numbness. Paresthesias. TECHNIQUE: Magnetic resonance imaging (MRI) of the brain and brainstem was performed without and with 15 mL MultiHance intravenous contrast. COMPARISON: None. FINDINGS: There is no intracranial hemorrhage, acute infarction, or abnormal intracranial mass lesion . The ventricles are normal in size. The orbits are normal. There is mild mucosal thickening in right maxillary sinus. The mastoid air cells are normal. IMPRESSION: 1. Normal brain. Reviewed, dictated and finalized at location A. IMPRESSION: 1. Normal brain.
== END 2023-12-29 14:41 | disposition home or self-care (01) ==
LOC: ANHIMG 14:51
PROVIDERS: PCP Nurse Practitioner Family; Visit Provider Student in an Organized Health Care Education/Training Program
DX: R20.0 Anesthesia of skin (principal)
CPT/HCPCS: 70553; A9577

== ENCOUNTER 2024-01-09 13:39 | Outpatient (CLI) | payer OTHER, SELFPAY ==
--- NOTE | ~2024-01-09 | CT_ITS ---
EXAMINATION: CT abdomen pelvis wo con DATE: 01/09/2024 14:10 INDICATION: Bilateral flank pain TECHNIQUE: Computed tomography (CT) of the abdomen and pelvis was performed without intravenous contr ast. The dose-length product (DLP) was 558.55 mGy-cm. Automated exposure control and iterative recons truction technique were employed. COMPARISON: None FINDINGS: The lung bases are clear. The heart size is normal. Punctate calcifications in an otherwise normal spleen likely represent healed granulomatous disease. The liver, pancreas, gallbladder, and a drenal glands are normal. The kidneys are unremarkable. There are no pathologically enlarged abdomina l or pelvic lymph nodes. No free intraperitoneal gas or evidence of bowel obstruction. There is a sma ll umbilical hernia containing fat. There is a trace volume of likely physiologic fluid in the pelvis . There is mild lumbar spondylosis. IMPRESSION: 1. No CT correlate for the patient's symptoms. Reviewed, dictated and finalized at location F.
[2024-01-09 14:34] LABS: Basophils Absolute Auto 0.09 K/mm3 (0.00-0.10); Basophils Percent Auto 1.1 % (0.0-1.0); Eosinophils Absolute Auto 0.36 K/mm3 (0.02-0.50); Eosinophils Percent Auto 4.6 % (1.0-6.0); Hematocrit 43.4 % (35.0-49.0); Hemoglobin 14.5 g/dL (12.0-15.0); Immature Granulocyte Absolute 0.02 K/mm3 (0.00-0.00); Immature Granulocyte Percent A 0.3 % (0.0-0.0); Lymphocytes Absolute Auto 2.51 K/mm3 (1.10-4.50); Lymphocytes Percent Auto 31.9 % (18.0-42.0); Mean Corpuscular HGB Conc 33.4 g/dL (32-36); Mean Corpuscular Hemoglobin 30.9 pg (27.0-31.0); Mean Corpuscular Volume 92.3 fL (78.0-102.0); Mean Platelet Volume 9.6 fl (9.2-11.8); Monocytes Absolute Auto 0.53 K/mm3 (0.10-0.90); Monocytes Percent Auto 6.7 % (2.0-11.0); Neutrophils Absolute Auto 4.37 K/mm3 (1.70-7.20); Neutrophils Percent Auto 55.4 % (50.0-70.0); Platelet Count Result 263 K/mm3 (150-420); White Blood Count 7.9 K/mm3 (4.8-10.8)
[2024-01-09 14:37] LABS: Appearance Urine Clear (Clear); Bilirubin Urine Negative (Negative); Blood Urine Negative (Negative); Color Urine Light Yellow (Yellow); Glucose Urine UA Negative (Negative); Ketones Urine Negative (Negative); Leukocyte Esterase Ur Negative LEU/UL (Negative); Nitrate Urine Negative (Negative); Protein Urine Negative (Negative); Urobilinogen Urine 0.2 mg/dL (0.2-1.0)
[2024-01-09 14:56] LABS: Add Urine Microscopic? NO
[2024-01-09 15:24] LABS: Alanine Aminotransferase 16 U/L (14-59); Albumin Level 3.8 g/dL (3.4-5.0); Alkaline Phosphatase 35 U/L (46-116); Anion Gap 8 mmol/L (4-12); Aspartate Amino Transferase 17 U/L (15-37); Bilirubin,Total 0.3 mg/dL (0.00-1.00); Blood Urea Nitrogen 10 mg/dL (7-18); Calcium 8.3 mg/dL (8.5-10.1); Carbon Dioxide 27 mmol/L (21-32); Chloride 102 mmol/L (98-108); Cholesterol 133 mg/dL (0-200); Estimated Glomerular Filt Rate > 60; Free T4 Free Thyroxine 1.08 ng/dL (0.76-1.46); Glucose 91 mg/dL (70-99); HDL Direct 45 mg/dL (40-60); LDL Cholesterol Calculated 54 mg/dL (<130); Lipase 99 U/L (16-77); Osmolality Calculated 283 mOsm/kg (285-295); Potassium 4.2 mmol/L (3.5-5.1); Sodium 137 mmol/L (136-145); Thyroid Stimulating Hormone 0.85 uIU/mL (0.36-3.74); Total Protein 6.9 g/dL (6.4-8.2); Triglycerides 169 mg/dL (0-150)
[2024-01-09 15:34] LABS: CRP < 0.5 mg/dL (0.0-0.9); Erythrocyte Sedimentation Rate 5 mm/hr (0-15)
[2024-01-15 16:55] LABS: Anti Nuclear Antibody Pattern Nuclear, Speckled; Anti Nuclear Antibody Titer 1:40 (Negative)
== END 2024-01-09 13:40 | disposition home or self-care (01) ==
PROVIDERS: PCP Nurse Practitioner Family; Visit Provider Nurse Practitioner Family
DX: R10.9 Unspecified abdominal pain (principal)
CPT/HCPCS: 36415; 74150; 74176; 80053; 80061; 81003; 83036; 83690; 84439; 84443; 85025; 85652; 86038; 86039; 86140

== ENCOUNTER 2025-06-02 15:46 | Outpatient (CLI) | payer OTHER, SELFPAY ==
--- OUTSIDE RECORDS SUMMARY | 2025-06-02 16:07 | XMS_ITS | Patient Health Record ---
Author Organization [facility] Address [address] [place] [address] Care Team Providers Care Engine Monitor Name Role Phone BRIANNA DAWKINS Unavailable [phone] May Unavailable Allergies No Known Allergies Reason For Referral No Information Medications Medication SIG (Take, Route, Frequency, Duration) Notes Start Date End Date Status AMLODIPINE ; Duration: -2 *Reorder from Me dispan for eRx and Interaction Alerts* 03/10/2022 Active Urea 45 ; Duration: -2 *Pick strength-f orm from Medispan for eRX* 03/03/2022 Active Metoprolol ; Duration: -2 *Reorder from Me dispan for eRx and Interaction Alerts* 03/10/2022 Active Suboxone ; Duration: -2 *Pick strength-f orm from Medispan for eRX* 03/10/2022 Active Problems Problem Type SNOMED Code ICD Code Onset Dates Problem Status W/U Status Risk Notes Problem Tinea unguium (701536261) Tinea unguium (B35.1) 2 Active confirmed Problem Anxiety disorder (034237780) Anxiety disorder, unspecified (F41.9) 2 Active confirmed Problem Old myocardial infarction (7642412) Old myocardial infarction (I25.2) 2 Active confirmed Problem Acquired hallux valgus (50808799) Hallux valgus (acquired), right foot (M20.11) 2 Active confirmed Problem Acquired hallux valgus (88244352) Hallux valgus (acquired), left foot (M20.12) 2 Active confirmed Problem Pain in limb (51418438) Pain in right toe(s) (M79.674) 2 Active confirmed Problem Pain in limb (79075132) Pain in left toe(s) (M79.675) 2 Active confirmed Problem Finding relating to psychosocial functioning (863013418) Other specified problems related to psychosocial circumstances (Z65.8) 2 Active confirmed Problem Family history of cancer (072367805) Family history of malignant neoplasm, unspecified (Z80.9) 2 Active confirmed Problem Family history of ischemic heart disease (745768470) Family history of ischemic heart disease and other diseases of the circulatory system (Z82.49) 2 Active confirmed Problem Essential hypertension (03588017) Essential (primary) hypertension (I10) 2 Active confirmed Plan Of Treatment No Information Insurance Providers Payer Name Payer Address Payer Phone Subscriber Number Group Number Insured Name Patient Relationship to Insured Coverage Start Date Coverage End Date [address] [id number] YOUSUF BOBBY Self - patient is the insured
--- OUTSIDE RECORDS SUMMARY | 2025-06-02 16:07 | XMS_ITS | Clinical Summary ---
Author Organization [facility] Address [address] [place] [address] Phone Care Team Providers Care Pharmaceutical Compounding Supervisor Name Role Phone Leonarda Waller MD Unavailable Yancy Jose Primary Care Provider + Allergies No known active allergies Medications metoprolol tartrate (LOPRESSOR) 25 MG Tablet Take 25 mg by mouth 2 times daily. 09/12/2022 Active amLODIPine (NORVASC) 5 MG Tablet Take 5 mg by mouth daily. 09/23/2022 Active Suboxone 8-2 MG FILM 0 10/27/2022 Active LORazepam (ATIVAN) 1 MG Tablet Take 1 mg by mouth. Active gabapentin (NEURONTIN) 300 MG Capsule 12/21/2022 Active methIMAzole (TAPAZOLE) 5 MG Tablet Take 1 Tablet by mouth daily. 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 Gender Identity Not on file Sexual Orientation Not on file Last Filed Vital Signs Vital Sign Reading Time Taken Comments Blood Pressure 138/82 03/02/2023 2:45 PM CDT Pulse 90 03/02/2023 2:45 PM CDT Temperature 37 C (98.6 F) 03/02/2023 2:45 PM CDT Respiratory Rate 20 03/02/2023 2:45 PM CDT Oxygen Saturation 96% 03/02/2023 2:45 PM CDT Inhaled Oxygen Concentration - - Weight 73.1 kg (161 lb 3.2 oz) 03/02/2023 2:45 P M CDT Height 160 cm (5' 3) 11/14/2022 10:50 AM SUPERVISOR SANDING Body Mass Index 28.56 11/14/2022 10:50 AM SUPERVISOR 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 Plan of Treatment Health Maintenance Due Date Last Done Comments Hepatitis C Virus (HCV) Screening 1988 Hepatitis B Immunization (1 of 3 - 19+ 3-dose series) 2007 Pap Smear 2009 Human Papillomavirus (HPV) Immunization (1 - 3-dose SCDM series) 2015 Cervical Cancer Screening (CCS) 2018 HPV/Cotest 2018 SARS-COV-2 Immunization (2023- season) 2024 Influenza Immunization (#1) 2025 Td Immunization Every 10 Yea rs (Adults With 1 Tdap) 08/09/2026 08/09/2016 Respiratory Syncytial Virus (RSV) Immunization (Adult) (1 - 1-dose 75+ series) 2063 DTaP/Tdap/Td Immunization Discontinued 08/09/2016 Meningococcal Immunization (ACWY) Aged Out No longer eligible based on patient's age to complete this topic Pneumococcal Immunization Combined Aged Out No longer eligible based on patient's age to complete this topic Rotavirus Immunization Aged Out No lo nger eligible based on patient's age to complete this topic Insurance MEDICAID [employer] Care Teams Pharmaceutical Compounding Supervisor Relationship Specialty Start Date End Date Yancy Jose PAC [address] [facility] [address] [place] [address] PCP - General Primary Care 11/03/22 Leonarda Waller MD [address] [facility] [address] [place] [address] Consulting Physician Endocrinology 11/03/22
--- OUTSIDE RECORDS SUMMARY | 2025-06-02 16:07 | XMS_ITS | Clinical Summary ---
Author Organization [facility] Address [address] [place] [address] Care Team Providers Care Senior Compensation Consultant Name Role Phone Tyler Longo MD Unavailable Anthony Estrada NP Primary Care Provider [phone] Allergies No known active allergies Medications amLODIPine (NORVASC) 5 mg tablet Take 1 tablet (5 mg total) by mouth daily 09/23/2022 Active gabapentin (NEURONTIN) 300 mg capsule 12/21/2022 Active buprenorphine-na loxone (Suboxone) 8-2 mg per film 05/02/2019 Active LORazepam (ATIVAN) 1 mg tablet Take 1 tablet (1 mg total) by mouth 10/12/2021 Active metoprolol tartrate (LOPRESSOR) 25 mg immediate release tablet Take 1 tablet (25 mg total) by mouth 2 (two) times a day 10/08/2020 Active ketorolac (TORADOL) 10 mg tablet 04/12/2023 Active lamoTRIgine (LaMICtal) 25 mg tablet 04/04/2023 Active meloxicam (MOBIC) 15 mg tablet 03/09/2023 Active predniSONE (DELTASONE) 20 mg tablet 03/09/2023 Active propranoloL (INDERAL) 20 mg tablet Take 1 tablet (20 mg total) by mouth 2 (two) times a day Active tiZANidine (ZANAFLEX) 2 mg tablet 03/09/2023 Active Active Problems Problem Noted Date Diagnosed Date Pulsatile tinnitus, left ear 05/02/2023 Primary hypertension 11/23/2021 Other chest pain 11/23/2021 Overview (11/23/2021): Normal cath 10/04. Mild rv dysfunction Medical History Medical History Date Comments Anxiety Dizziness Migraine Thyroid disease Tinnitus Family History Medical History Relation Name Comments Cancer Brother Autoimmune disease Mother COPD Mother Cancer Mother Autoimmune disease Sister Thyroid disease Sister Relation Name Status Comments Brother Mother Sister Social History Tobacco Use Types Packs/Day Years Used Date Smoking Tobacco: Former Cigarettes Q uit: 03/06/2022 Tobacco Cessation:Counseling Given: Not Answered Alcohol Use Standard Drinks/Week Comments Not Currently 0 (1 standard drink = 0.6 oz pur e alcohol) Personal Safety Answer Date Recorded Getting School Help Needed Not on file 10/13 Comments No Sex and Gender Information Value Date Recorded Sex Assigned at Not on file 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 Gender Identity Not on file Sexual Orientation Not on file Obstetrics History Last Filed Vital Signs Vital Sign Reading Time Taken Comments Blood Pressure 135/88 03/06/2023 10:30 PM CDT Pulse 81 03/06/2023 10:30 PM CDT Temperature 36.7 C (98.1 F) 03/06/2023 6:34 PM CDT Respiratory Rate 18 03/06/2023 6:34 PM CDT Oxygen Saturation 98% 03/06/2023 10:30 PM CDT Inhaled Oxygen Concentration - - Weight 72.6 kg (160 lb) 03/06/2023 6:34 PM CDT Height 160 cm (5' 3) 03/06/2023 6:34 PM CDT Body Mass Index 28.34 03/06/2023 6:34 PM CDT Plan of Treatment Health Maintenance Due Date Last Done Comments Cervical Cancer Screening 1988 Depression Screening 1988 Hepatitis C Screening 1988 Varicella Vaccines (1 of 2 - 13+ 2-dose series) 2001 Hepatitis B Screening 2006 Regular Well Visit/Exam 18-64 2006 HPV Vaccines (1 - 3-dose SCD M series) 2015 Influenza Vaccine (#1) 2025 DTaP/Tdap/Td Vaccine (2 - Td or Tdap) 08/09/2026 08/09/2016 Pneumococcal vaccine <65 Aged Out No longer eligible based on patient's age to complete this topic Insurance [facility] Care Teams Senior Compensation Consultant Relationship Specialty Start Date End Date Anthony Estrada NP [address] [place] [address] PCP - General Family Medicine 05/02/23 Tyler Longo MD Referring Physician Otolaryngology 04/27/23
[2025-06-02 16:39] LABS: Hemoglobin A1C 5.0 % (<5.7)
[2025-06-02 16:47] LABS: Alanine Aminotransferase 11 U/L (6-35); Albumin Level 4.2 g/dL (3.5-5.1); Alkaline Phosphatase 30 U/L (38-126); Anion Gap 6 mmol/L (4-12); Aspartate Amino Transferase 23 U/L (14-36); Bilirubin,Total 0.3 mg/dL (0.2-1.3); Blood Urea Nitrogen 8 mg/dL (7-17); Calcium 8.9 mg/dL (8.4-10.2); Carbon Dioxide 30 mmol/L (22-30); Chloride 102 mmol/L (98-107); Cholesterol 117 mg/dL (0-200); Estimated Glomerular Filt Rate > 60; Glucose 85 mg/dL (65-110); HDL Direct 48 mg/dL; Osmolality Calculated 283 mOsm/kg (285-295); Potassium 4.0 mmol/L (3.4-5.0); Sodium 138 mmol/L (137-145); Total Protein 6.6 g/dL (6.3-8.2); Triglycerides 96 mg/dL (<150)
== END 2025-06-02 15:47 | disposition home or self-care (01) ==
LOC: CHSLAB 15:49
PROVIDERS: Visit Provider Internal Medicine Cardiovascular Disease
DX: E78.5 Hyperlipidemia, unspecified (principal)
CPT/HCPCS: 36415; 80053; 80061; 83036